=== PATIENT | male | born 1940 | race Caucasian/White ===

== ENCOUNTER 2020-05-21 13:40 | Outpatient (CLI) | payer MEDICARE, SELFPAY ==
--- NOTE | 2020-05-21 13:49 | ECHO_ITS ---
Patient Info Name: Paulino Correa Age: 80 years : 1940 Gender: Male Ht: 69 in Wt: 188 lbs BSA: 2.05 m2 HR: 75 bpm BP: 145 / 84 mmHg Technical Quality: Good Exam Date: 05/21/2020 2:21 PM Exam Location: [facility] Pulmonary Patient Status: Outpatient Admit Date: 05/21/2020 Staff Ordering Physician: William Reddy DO Geriatric Nursing Assistant: Franklin Yanes RDCS, RT Attending Provider: William Reddy DO Referring Physician: Barry KEARNEY; Exam Type: CA echo dop color flow w con Study Info Indications R06.00 - Dyspnea, unspecified Complete two-dimensional, color flow and Doppler transthoracic echocardiogram is performed. Strain analysis performed. Summary 1. Complete two-dimensional, color flow and Doppler transthoracic echocardiogram is performed. 2. Left ventricular chamber dimension is normal. 3. Left ventricular systolic function is normal, estimated at 60-65%. 4. There is mildly increased left ventricular wall thickness. 5. Left ventricular septal wall motion is abnormal with septal motion related to bundle branch block. 6. The left ventricular diastolic function is grade I diastolic dysfunction. 7. E/e' 11 is mildly elevated. 8. Global longitudinal strain is abnormal at -13.8%. 9. There is moderate aortic valve sclerosis. 10. There is mild aortic valve stenosis with a peak velocity of 170.04 cm/s, mean gradient of 7 mmHg, and aortic valve area of 1.60 cm2. 11. The mitral valve has mildly calcified annulus. 12. There is trace tricuspid valve regurgitation. 13. No pulmonary hypertension, estimated pulmonary arterial systolic pressure is 26 mmHg. Left Ventricle E/e' 11 is mildly elevated. Global longitudinal strain is abnormal at -13.8%. Left ventricular chamber dimension is normal. Left ventricular systolic function is normal, estimated at 60-65%. There is mildly increased left ventricular wall thickness. Left ventricular septal wall motion is abnormal with septal motion related to bundle branch block. The left ventricular diastolic function is grade I diastolic dysfunction. Right Ventricle Right ventricular chamber dimension is normal. Right ventricular systolic function is normal. Left Atria Left atrial chamber dimension is normal. Right Atria Right atrial chamber dimension is normal. Aortic Valve The aortic valve is trileaflet. There is moderate aortic valve sclerosis. There is mild aortic valve stenosis with a peak velocity of 170.04 cm/s, mean gradient of 7 mmHg, and aortic valve area of 1.60 cm2. There is no aortic valve regurgitation. Pulmonic Valve There is no pulmonic regurgitation. Mitral Valve The mitral valve has mildly calcified annulus. There is no mitral valve stenosis. There is no mitral valve regurgitation. Tricuspid Valve There is trace tricuspid valve regurgitation. No pulmonary hypertension, estimated pulmonary arterial systolic pressure is 26 mmHg. Pericardium/Pleural There is no pericardial effusion. Inferior Vena Cava Normal inferior vena cava with >50% collapse upon inspiration consistent with normal right atrial pressure, 5 mmHg. Aorta The aortic root size at the sinus of Valsalva is normal. Left Ventricular Outflow Tract Name Value Normal LVOT 2D LVOT Di
== END 2020-05-21 13:41 | disposition home or self-care (01) ==
LOC: ANHCARD 13:42
PROVIDERS: PCP Internal Medicine Cardiovascular Disease; Visit Provider Internal Medicine Cardiovascular Disease
DX: R06.00 Dyspnea, unspecified (principal); R94.2 Abnormal results of pulmonary function studies
CPT/HCPCS: C8929

== ENCOUNTER 2023-01-12 12:23 | Outpatient (CLI) | payer MEDICARE, SELFPAY ==
--- NOTE | 2023-01-12 12:32 | ECHO_ITS ---
Patient Info Name: Paulino Correa Age: 83 years : 1940 Gender: Male Ht: 69 in Wt: 186 lbs BSA: 2.04 m2 HR: 84 bpm BP: 133 / 83 mmHg Heart Rhythm: Sinus Rhythm Technical Quality: Poor Exam Date: 01/12/2023 12:52 PM Exam Location: Echo Lab Patient Status: Outpatient Admit Date: 01/12/2023 Staff Ordering Physician: William Reddy DO Community Engagement Leader: Shaw Mccormack RDCS Attending Provider: William Reddy DO Referring Physician: Barry KEARNEY; Exam Type: CA echo dop color flow w con Study Info Indications - Nonrehumatic aortic stenosis Complete two-dimensional, color flow and Doppler transthoracic echocardiogram is performed with contrast to opacify the left ventricle and to improve the deliniation of the left ventricle endocardial borders. Contrast/Agitated Saline Contrast/Ag. Saline: Definity Amount: 3.00 ml Summary 1. Technically suboptimal study due to poor sonographic images. 2. Definity contrast administered improved wall motion interpretation. 3. Left ventricular chamber dimension is normal. 4. Left ventricular systolic function is normal, estimated at 55-60%. 5. There is mild concentric increased left ventricular wall thickness. 6. Left ventricular septal wall motion is abnormal with septal motion related to bundle branch block. 7. The left ventricular diastolic function is grade I diastolic dysfunction. 8. E/e' 8 is minimally elevated. 9. Left atrial chamber dimension is mildly enlarged. 10. There is moderate aortic valve sclerosis. 11. There is very mild aortic valve stenosis with a peak velocity of 169.68 cm/s, mean gradient of 7 mmHg, and aortic valve area of 2.35 cm2. 12. The mitral valve has mildly calcified annulus. 13. No pulmonary hypertension, estimated pulmonary arterial systolic pressure is 12 mmHg. 14. The aortic root size at the sinus of Valsalva is borderline dilated at 4.0 cm. Left Ventricle E/e' 8 is minimally elevated. Definity contrast administered improved wall motion interpretation. Technically suboptimal study due to poor sonographic images. Left ventricular chamber dimension is normal. Left ventricular systolic function is normal, estimated at 55-60%. There is mild concentric increased left ventricular wall thickness. Left ventricular septal wall motion is abnormal with septal motion related to bundle branch block. The left ventricular diastolic function is grade I diastolic dysfunction. Right Ventricle Right ventricular systolic function is normal and with normal TAPSE 3.0 cm. Right ventricular chamber dimension is normal. Left Atria Left atrial chamber dimension is mildly enlarged. Right Atria Right atrial chamber dimension is normal. Aortic Valve There is very mild aortic valve stenosis with a peak velocity of 169.68 cm/s, mean gradient of 7 mmHg, and aortic valve area of 2.35 cm2. The aortic valve is trileaflet. There is moderate aortic valve sclerosis. There is no aortic valve regurgitation. Pulmonic Valve There is no pulmonic regurgitation. Mitral Valve The mitral valve has mildly calcified annulus. There is no mitral valve stenosis. There is no mitral valve regurgitation. Tricuspid Valve There is no tricuspid valve regurgitation. No pulmonary hypertension, estimated pulmonary arterial systolic pressure is 12 mmHg. Pericardium/Pleural There is no pericardial effusion. Inferior Vena Cava Normal inferior vena cava with >50% collapse upon inspiration consistent with normal right atrial pressure, 5 mmHg. Aorta The aortic root size at the sinus of Valsalva is b
[2023-01-12] MEDS: PERFLUTREN LIPID MICROSPHERES 1.5 ML VIAL DILUTED TO 10 ML TOTAL VOLUME IV PUSH (13:18)
--- NOTE | 2023-01-13 08:24 | IVDEFINITY ---
Prior to administration of IV Definity the patient was educated on the risks and benefits of the imaging enhancing agent including potential adverse side effects. The patient verbalized understanding. Allergies were verified. No exclusion criteria were identified and at least one of the following inclusion criteria were met: 1) physician request, 2) patient technically difficult to image (per the [place] [employer]chocardi[employer] guidelines of two or more segments not discernable within the apical view), or 3) questionable left ventricular function. ?
== END 2023-01-12 12:24 | disposition home or self-care (01) ==
PROVIDERS: PCP Physician Assistant; Visit Provider Internal Medicine Cardiovascular Disease
DX: I08.0 Rheumatic disorders of both mitral and aortic valves (principal)
CPT/HCPCS: C8929; Q9957

== ENCOUNTER 2024-06-10 11:38 | Outpatient (CLI) | payer MEDICARE, SELFPAY ==
--- NOTE | ~2024-06-10 | XR_ITS ---
Right Shoulder Technique: AP and scapular Y views were obtained. Clinical History: Arthritis Findings: No fracture or dislocation is seen. Osseous alignment is anatomic. The glenohumeral joint d emonstrates moderate degenerative change. Probable loose bodies in the biceps tendon sheath. Impression: Degenerative change, as above. Reviewed, dictated and finalized at location . Impression: Degenerative change, as above.
--- NOTE | ~2024-06-10 | XR_ITS ---
Left Shoulder Technique: AP and scapular Y views were obtained. Clinical History: Arthritis Findings: No fracture or dislocation is seen. Osseous alignment is anatomic. The glenohumeral joint d emonstrates severe degenerative change. There is mild AC joint degenerative change. Soft tissues are unremarkable. Impression: Severe glenohumeral joint degenerative change. Reviewed, dictated and finalized at location . Impression: Severe glenohumeral joint degenerative change.
== END 2024-06-10 11:39 | disposition home or self-care (01) ==
LOC: GOSHIMG 11:41
PROVIDERS: PCP Physician Assistant; Visit Provider Orthopaedic Surgery
DX: M19.011 Primary osteoarthritis, right shoulder (principal); M19.012 Primary osteoarthritis, left shoulder
CPT/HCPCS: 73030

== ENCOUNTER 2024-09-06 12:28 | Outpatient (CLI) | payer MEDICARE, SELFPAY ==
--- OUTSIDE RECORDS SUMMARY | 2024-09-06 12:33 | XMS_ITS | Encounter Summary ---
Author Organization [facility] Address [address] [place] [address] Phone Care Team Providers Care Candy Separator Enrobing Name Role Phone Nick Tran DPM Unavailable Nia Frederick PAC Primary Care Pro vider Brian Miller MD Unavailable [phone] Reason for Visit * Reason Comments Medication Refill Encounter Details Date Type Department Care Team (Late st Contact Info) Description 11/21/2020 Refill [facility] [address] [place], [place] [id number] Nia Frederick, PAC [address] [place] [address] Medication Refill Social History Tobacco Use Types Packs/Day Years Used Date Smoking Tobacco: Never Smokeless Tobacco: Never Alcohol Use Standard Drinks/Week Comments No 0 (1 standard drink = 0.6 oz pur e alcohol) PHQ-2 Answer Date Recorded Total Score - Questions 1-9 0 08/27 Education Answer Date Recorded What is the highest level of school you have completed or the highest degree you have received? 12th grade 03/07/2020 Sex and Gender Information Value Date Recorded Sex Assigned at Not on file Legal Sex Male 9:47 PM CDT Gender Identity Not on file Sexual Orientation Not on file documented as of this encounter Plan of Treatment Upcoming Encounters Date Type Department Care Team (Late st Contact Info) Description 02/12/2025 10:15 AM CAMPUS RECRUITING INTERN Office Visit [facility] - Internal Medicine [place] [address] [place] [address] Nia Frederick, [facility] [address] [place] [address] documented as of this encounter Visit Diagnoses Not on filedocumented in this encounter Additional Health Concerns Infection Onset Date Last Indicated Resolved Time COVID - 19 05/21/2021 05/21/2021 05/21/2021 10:3 3 AM CDT COVID - 19 05/21/2021 05/21/2021 06/10/2021 12:1 6 AM CDT COVID - 19 05/04/2023 05/04/2023 05/04/2023 1:07 PM CAMPUS RECRUITING INTERN Respiratory Rule-Out 05/04/2023 05/04/2023 024 1:21 PM CAMPUS RECRUITING INTERN Assessment Noted Time PHQ-9 Depression Total Score: 0 09/10/19 21 10:00 AM CDT documented as of this encounter Care Teams Candy Separator Enrobing Relationship Specialty Start Date End Date Nia Frederick, PAC [address] [place] [address] PCP - General Physician Archaeologist 01/27/16 Nick Tran DPM Podiatry 11/20/15 Brian Miller MD [address] [address] Consulting Physician General Surgery 02/19/24 documented as of this encounter
--- OUTSIDE RECORDS SUMMARY | 2024-09-06 12:33 | XMS_ITS | Referral Summary ---
Author Organization [facility] Medical Office Building [facility] Address [address] [place] [address] Care Team Providers Care Mason Helper Name Role Phone Nia Frederick Primary Care Prov ider Allergies Active Allergy Reactions Criticality Noted Date Comments Codeine Other (See comments) Low 01/28/2015 Makes pt hyper Gluten Rash Medium Medications allopurinol (ZYLOPRIM) 100 mg tablet TAKE 1 TAB BY MOUTH EVERY OTHER DAY(M/W/F/SUN) ALTERNATING WITH 2 TABS(200MG) EVERY OTHER DAY 0 05/04/19 18 Active fluocinolone in oil (DermOtic) 0.01 % dropsIndications :Otitis Externa Eczema Administer into each ear. 03/28/19 18 Active fluticasone (FLONASE) 50 mcg/actuation nasal spray Administer into each nostril. 06/07/19 17 Active furosemide (LASIX) 20 mg tablet Take 20 mg by mouth daily. 3 07/05/19 18 Active levothyroxine (SYNTHROID, LEVOTHROID) 200 mcg tablet Take total of 250 mcg 12/14/19 17 Active levothyroxine (SYNTHROID, LEVOTHROID) 50 mcg tablet TAKE 1 TABLET BY MOUTH EVERY DAY WITH LEVOTHYROXINE 200MCG 12/15/19 17 Active lisinopril-hydro CHLOROthiazide (PRINZIDE,ZESTOR ETIC) 20-12.5 mg per tabletIndication s:hypertension Take 1 tablet by mouth daily. 2 05/30/19 18 Active meclizine (ANTIVERT) 25 mg tablet Take 25 mg by mouth. 06/07/19 17 Active silver sulfadiazine (SILVADENE, SSD) 1 % cream Apply topically. 03/28/19 18 Active simvastatin (ZOCOR) 20 mg tablet Take 20 mg by mouth daily. 2 05/08/19 18 Active omeprazole (PriLOSEC) 20 mg capsule Take 20 mg by mouth. 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 Assessment & Plan (02/07/2022 11:14 AM AUTOMOBILE RELOCATION ENGINEER): 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 Continue omeprazole Dysphonia 02/07/2022 Assessment & Plan (02/07/2022 11:14 AM AUTOMOBILE RELOCATION ENGINEER): 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 Continue omeprazole Gastroesophageal reflux disease without esophagi tis 02/07/2022 Assessment & Plan (02/07/2022 11:14 AM AUTOMOBILE RELOCATION ENGINEER): 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 Continue omeprazole LPR discussed and Handout provided Cough 08/15/2014 Overview (06/03/2016): Cough Social History Tobacco Use Types Packs/Day Years Used Date Smoking Tobacco: Never Smokeless Tobacco: Never Tobacco Cessation:Counseling Given: Not Answered Alcohol Use Standard Drinks/Week Comments No 0 (1 standard drink = 0.6 oz pur e alcohol) Sex and Gender Information Value Date Recorded Sex Assigned at Not on file Legal Sex Male 10:14 AM AUTOMOBILE RELOCATION ENGINEER Gender Identity Not on file Sexual Orientation Not on file Last Filed Vital Signs Vital Sign Reading Time Taken Comments Blood Pressure 113/68 02/07/2022 10:48 AM AUTOMOBILE RELOCATION ENGINEER Pulse 75 02/07/2022 10:48 AM AUTOMOBILE RELOCATION ENGINEER Temperature 36.3 C (97.4 F) 02/07/2022 10:48 AM AUTOMOBILE RELOCATION ENGINEER Respiratory Rate 16 02/07/2022 10:48 AM AUTOMOBILE RELOCATION ENGINEER Oxygen Saturation 97% 02/07/2022 10:48 AM AUTOMOBILE RELOCATION ENGINEER Inhaled Oxygen Concentration - - Weight 85.3 kg (188 lb) 02/07/2022 10:48 AM AUTOMOBILE RELOCATION ENGINEER Height 175.3 cm (5' 9) 02/07/2022 10:48 AM AUTOMOBILE RELOCATION ENGINEER Body Mass Index 27.76 02/07/2022 10:48 AM AUTOMOBILE RELOCATION ENGINEER Plan of Treatment Not on file Insurance COMMERCIAL GENERIC COMMERCIAL GENERIC MEDICARE Care Teams Mason Helper Relationship Specialty Start Date End Date Nia Frederick PA PCP - General Neurosurgery 07/12/17
--- OUTSIDE RECORDS SUMMARY | 2024-09-06 12:33 | XMS_ITS | Encounter Summary ---
Author Organization [facility] Address [address] [place] [address] Phone Care Team Providers Care Steam Press Tender Name Role Phone Nick Tran DPM Unavailable Nia Frederick PAC Primary Care Pro vider Brian Miller MD Unavailable Reason for Visit * Reason Comments Medication Refill Encounter Details Date Type Department Care Team (Late st Contact Info) Description 11/21/2022 Refill [facility] [place] [address] [place] [phone] Nia Frederick, PAC [address] [place] [address] Medication Refill Social History Tobacco Use Types Packs/Day Years Used Date Smoking Tobacco: Never Smokeless Tobacco: Never Alcohol Use Standard Drinks/Week Comments No 0 (1 standard drink = 0.6 oz pur e alcohol) PHQ-2 Answer Date Recorded Total Score - Questions 1-9 0 04/27 Education Answer Date Recorded What is the highest level of school you have completed or the highest degree you have received? 12th grade 03/07/2020 Sexually Active Control Partners Comments Not Currently Sex and Gender Information Value Date Recorded Sex Assigned at Not on file Legal Sex Male 9:47 PM CDT Gender Identity Not on file Sexual Orientation Not on file documented as of this encounter Miscellaneous Notes * Telephone Encounter - Sunita Mack RN - 11/21/2022 10:36 AM CDT Medication failed the protocol, provider to review and approve the medication order if appropriate. Requested Prescriptions Pending Prescriptions Disp Refills omeprazole (PriLOSEC) 40 MG CAPSULE DELAYED RELEASE [Pharmacy Med Name: OMEPRAZOLE DR 40 MG CAPSULE] 90 Capsule 3 Sig: TAKE 1 CAPSULE BY MOUTH EVERY DAY Proton Pump Inhibitors Protocol Passed - 11/21/2022 7:30 AM Passed - Visit with relevant provider in past 12 months or upcoming 90 days Recent Visits Date Type Provider Dept 05/25/22 Office Visit Nia Frederick PAC [facility] [place] 11/24/21 Office Visit Nia Frederick PAC [facility] [place] Showing recent visits within past 365 days and meeting all other requirements Future Appointments Date Type Provider Dept 11/25/22 Appointment Nia Frederick PAC [facility] [place] Showing future appointments within next 90 days and meeting all other requirements carvedilol (COREG) 3.125 MG Tablet [Pharmacy Med Name: CARVEDILOL 3.125 MG TABLET] 60 Tablet 0 Sig: TAKE 1 TABLET BY MOUTH EVERY DAY Beta-Blockers Protocol Passed - 11/21/2022 7:30 AM Passed - BP on record in the past year Clinician-entered: BP Readings from Last 3 Encounters: 05/25/22 106/68 11/24/21 104/64 06/25/21 102/66 Patient-entered: No data recorded Passed - Visit with relevant provider in past 12 months or upcoming 90 days Recent Visits Date Type Provider Dept 05/25/22 Office Visit Nia Frederick PAC [facility] [place] 11/24/21 Office Visit Nia Frederick PAC [facility] [place] Showing recent visits within past 365 days and meeting all other requirements Future Appointments Date Type Provider Dept 11/25/22 Appointment Nia Frederick PAC [facility] Show[place] future appointments within next 90 days and meeting all other requirements documented in this encounter Plan of Treatment Upcoming Encounters Date Type Department Care Team (Late st Contact Info) Description 02/12/2025 10:15 AM INSOLE AND HEEL STIFFENER Office Visit [facility] - Internal [facility] - [place] [address] [place] [address] Nia Frederick, PAC [address] [address] documented as of this encounter Visit Diagnoses Not on filedocumented in this encounter Additional Health Concerns Infection Onset Date Last Indicated Resolved Time COVID - 19 05/04/2023 05/04/2023 05/04/2023 1:07 PM INSOLE AND HEEL STIFFENER Respiratory Rule-Out 05/04/2023 05/04/2023 024 1:21 PM INSOLE AND HEEL STIFFENER Assessment Noted Time PHQ-9 Depression Total Score: 0 09/10/19 21 10:00 AM CDT documented as of this encounter Care Teams Steam Press Tender Relationship Specialty Start Date End Date Nai Frederick, PAC [address] [place] [address] PCP - General Physician Boiler Repair Supervisor 01/27/16 Nick Tran DPM Podiatry 11/20/15 Brian Miller MD [address] [phone] Consulting Physician General Surgery 02/19/24 documented as of this encounter
--- OUTSIDE RECORDS SUMMARY | 2024-09-06 12:33 | XMS_ITS | Encounter Summary ---
Author Organization [facility] Address [address] [place] [address] Phone Care Team Providers Care Pillar Man Name Role Phone Nick Tran DPM Unavailable Nia Frederick PAC Primary Care Pro vider Brian Miller MD Unavailable Encounter Details Date Type Department Care Team (Late st Contact Info) Description 09/03/2024 Documentation Only [facility] - [place] [address] [place] [id number] Nia Frederick, PAC [address] [place] [address] Social History Tobacco Use Types Packs/Day Years Used Date Smoking Tobacco: Never Passive Smoke Exposure: Never Smokeless Tobacco: Never Alcohol Use Standard Drinks/Week Comments No 0 (1 standard drink = 0.6 oz pur e alcohol) [facility] Utilities Answer Date Recorded In the past 12 months has [employer] electric, gas, oil, or water company threatened to shut off services in your home? No 02/11/2024 Social Connection and Isolation Panel Answer Date Recorded In a typical week, how many times do you talk on the phone with family, friends, or neighbors? Twice a week 02/11/2024 How often do you get togethe r with friends or relatives? Three times a week 02/11/2024 How often do you attend [facility] or nondenominational services? More than 4 times per year 02/11/2024 Do you belong to any clubs o r organizations such as jainism groups, unions, fraternal or athletic groups, or school groups? No 02/11/2024 How often do you attend meet ings of the clubs or organizations you belong to? Never 02/11/2024 Are you , , di vorced, , never , or living with a partner? 02/11/2024 AUDIT-C Answer Date Recorded Q1: How often do you have a drink containing alcohol? Never 02/11/2024 Q2: How many drinks containi ng alcohol do you have on a typical day when you are drinking? Patient does not drink Q3: How often do you have si x or more drinks on one occasion? Never 02/11/2024 Overall Financial Resource Strain (CARDIA) Answe r Date Recorded How hard is it for you to pa y for the very basics like food, housing, medical care, and heating? Not hard at all 02/11/2024 PHQ-2 Answer Date Recorded Total Score - Questions 1-9 0 07/28 [facility] - Occupational Stress Questionnaire Answer Date Recorded Do you feel stress - tense, restless, nervous, or anxious, or unable to sleep at night because your mind is troubled all the time - these days? Only a little 02/11/2024 Exercise Vital Sign Answer Date Recorde d On average, how many days pe r week do you engage in moderate to strenuous exercise (like a brisk walk)? 0 days 02/11/2024 On average, how many minutes do you engage in exercise at this level? 0 min 02/11/2024 Hunger Vital Sign Answer Date Recorded Within the past 12 months, y ou worried that your food would run out before you got the money to buy more. Never true 02/11/20 24 Within the past 12 months, t he food you bought just didn't last and you didn't have money to get more. Never true 02/11/2024 PRAPARE - Transportation Answer Date Re corded In the past 12 months, has l ack of transportation kept you from medical appointments or from getting medications? No 01/27 In the past 12 months, has l ack of transportation kept you from meetings, work, or from getting things needed for daily living? No 02/11/2024 Housing Stability Vital Sign Answer Lemuel e Recorded In the last 12 months, was t here a time when you were not able to pay the mortgage or rent on time? No 06/19/2023 Number of Places Lived in the Last Year Not on f ile 06/19/2023 In the last 12 months, was t here a time when you did not have a steady place to sleep or slept in a fci (including now)? No 06/19/2023 Housing Stability Vital Sign Answer Lemeul e Recorded In the last 12 months, was t here a time when you were not able to pay the mortgage or rent on time? No 02/11/2024 In the past 12 months, how m any times have you moved where you were living? 0 02/11/2024 At any time in the past 12 m [facility], were you homeless or living in a fci (including now)? No 02/11/2024 Education Answer Date Recorded What is the [...] st Contact Info) Description 02/12/2025 10:15 AM JIG BORE OPERATOR Office Visit [facility] - Internal Medicine - [place] [address] [place] [address] Nia Frederick, MEÑO [address] [place] [address] documented as of this encounter Visit Diagnoses Not on filedocumented in this encounter Additional Health Concerns Assessment Noted Time PHQ-9 Depression Total Score: 0 08/10/19 25 10:26 AM CDT documented as of this encounter Care Teams Pillar Man Relationship Specialty Start Date End Date Nia Frederick PAC [address] [place] [address] PCP - General Physician Acquisition Consultant 01/27/16 Nick Tran DPM Podiatry 11/20/15 Brian Miller MD [address] [phone] Consulting Physician General Surgery 02/19/24 documented as of this encounter
--- OUTSIDE RECORDS SUMMARY | 2024-09-06 12:33 | XMS_ITS | Clinical Summary ---
Author Organization [facility] Address [address] [place] [id number] Care Team Providers Care Web Page Designer Name Role Phone Nia Frederick Primary Care Provider [phone] Social History Tobacco Use Types Packs/Day Years Used Date Smoking Tobacco: Never Assessed Sex and Gender Information Value Date Recorded Sex Assigned at Not on file Legal Sex Male 8:42 AM CDT Gender Identity Not on file Sexual Orientation Not on file Plan of Treatment Health Maintenance Due Date Last Done Comments Zoster Vaccines (1 of 2) 1989 Annual Medicare Wellness Visit 01/09/2004 DTaP, Tdap and Td Vaccines ( 1 - Tdap) 07/29/2006 07/28/2006 RSV Immunization or 60+ Years (1 - 1-dose 75+ series) 2014 COVID-19 Vaccine (4 2023-2 5 season) 2023 02/02/2021, 04/17/2020, 03/20/2020 Pneumococcal Vaccine: 50+ Years Completed 02/06/2017, 06/09/2015, 12/03/2013 Meningococcal B Vaccine Aged Out No l onger eligible based on patient's age to complete this topic Meningococcal Vaccine Aged Out No monty viridiana eligible based on patient's age to complete this topic RSV Immunizations Under 20 Months Aged Out No longer eligible b ased on patient's age to complete this topic Insurance MEDICARE [facility] Care Teams Web Page Designer Relationship Specialty Start Date End Date Nia Frederick PA PCP - General PHYSICIAN WIRE COATING OPERATOR METAL 05/24/21
--- OUTSIDE RECORDS SUMMARY | 2024-09-06 12:33 | XMS_ITS | Clinical Summary ---
Author Organization [facility] Address [address] [place] [address] Care Team Providers Care Guidance And Control System Engineer Name Role Phone Unavailable Primary Care Provider Unavailabl e Source Comments [facility],non-owned Affiliates and Associated Physician Practices is amultiple site organization consisting of ambulatory clinics and hospital sitesin [place], [place], [place] and [place]. This disclosure is being madepursuant to the Care Everywhere program and may not contain all information available regarding this patient. Last updated 17.[facility] [employer] Allergies Active Allergy Reactions Criticality Noted Date Comments Codeine Other High 08/29/2018 Patient said it makes him feel like he is bouncing off the mal[place]ado Medications * Be aware that medications may not be up to date on this document. Alwaysverify current medications with the patient. allopurinol (ZYLOPRIM) 100 MG tablet 2 07/11/2018 Active fluticasone propionate (FLONASE) 50 MCG/ACT nasal spray 06/06/2016 Active levothyroxine (SYNTHROID) 200 MCG tablet TAKE 1 TABLET BY MOUTH EVERY DAY 06/08/2018 Active levothyroxine (SYNTHROID) 50 MCG tablet Take 50 mcg by mouth once daily 08/23/2018 Active lisinopril-hydro CHLOROthiazide (PRINZIDE; ZESTORETIC) 20-12.5 MG tablet Take 1 tablet by mouth once daily 3 06/08/2018 Active meclizine (ANTIVERT) 25 MG tablet Take 25 mg by mouth 07/21/2018 Active omeprazole (PRILOSEC) 20 MG capsule 2 06/09/2018 Active simvastatin (ZOCOR) 20 MG tablet Take 20 mg by mouth once daily 08/02/2018 Active Active Problems No known active problems Social History Tobacco Use Types Packs/Day Years Used Date Smoking Tobacco: Never Smokeless Tobacco: Never Sex and Gender Information Value Date Recorded Sex Assigned at Not on file Legal Sex Male 11:55 AM CDT Gender Identity Not on file Sexual Orientation Not on file Last Filed Vital Signs Vital Sign Reading Time Taken Comments Blood Pressure - - Pulse - - Temperature - - Respiratory Rate - - Oxygen Saturation - - Inhaled Oxygen Concentration - - Weight 90.7 kg (200 lb) 08/29/2018 12:44 PM CDT Height 175.3 cm (5' 9) 08/29/2018 12:44 PM CDT Body Mass Index 29.53 08/29/2018 12:44 PM CDT Plan of Treatment Health Maintenance Due Date Last Done Comments DTAP/TDAP/TD VACCINES (1 - Tdap) 1958 PNEUMOCOCCAL VACCINE 50+ (1 of 1 - PCV) 1989 ZOSTER VACCINE (1 of 2) 1989 Respiratory Syncytial Virus (RSV) Vaccine Pt: or over 60 yrs (1 - 1-dose 75+ series) 2014 COVID-19 VACCINE ( - season) 2023 DEPRESSION SCREENING 02/28/2024 INFLUENZA VACCINE (#1) 2024 8, 11/28/2016, 11/03/2015, Additional history exists HEPATITIS B VACCINE Aged Out No longe r eligible based on patient's age to complete this topic HIB VACCINE Aged Out No longer eligi ble based on patient's age to complete this topic HPV VACCINE Aged Out No longer eligi ble based on patient's age to complete this topic MENINGOCOCCAL (Group B) VACCINE SHARED DECISION-MAKING Aged Out No longer eligible based on patient's age to complete this topic MENINGOCOCCAL GROUPS A/C/Y/W VACCINE Aged Out No longer eligible based on patient's age to complete this topic Insurance MEDICARE MEDICARE [facility]
--- OUTSIDE RECORDS SUMMARY | 2024-09-06 12:33 | XMS_ITS | Encounter Summary ---
Author Organization [facility] Address [address] [place] [address] Phone Care Team Providers Care Coat Finisher Name Role Phone Nick Tran DPM Unavailable Nia Frederick PAC Primary Care Pro vider Brian Miller MD Unavailable Reason for Visit * Reason Comments Medication Refill Encounter Details Date Type Department Care Team (Late st Contact Info) Description 12/01/2022 Refill [facility] - [facility] - [place] [address] [place] [phone] Nia Frederick, PAC [address] [place] [address] Medication Refill Social History Tobacco Use Types [...] on file Sexual Orientation Not on file COVID-19 Exposure Response Date Recorded In the last 10 days, have yo u been in contact with someone who was confirmed or suspected to have Coronavirus/COVID-19? No / Unsure 11/25/2022 9:25 AM CDT documented as of this encounter Miscellaneous Notes * Telephone Encounter - Sunita Mack RN - 12/01/2022 8:52 AM CDT Medication failed the protocol, provider to review and approve the medication order if appropriate. Requested Prescriptions Pending Prescriptions Disp Refills allopurinol (ZYLOPRIM) 100 MG Tablet [Pharmacy Med Name: ALLOPURINOL 100 MG TABLET] 90 Tablet 3 Sig: TAKE 1 TABLET BY MOUTH EVERY DAY Gout Agents Protocol Failed - 12/01/2022 1:15 AM Failed - Uric acid on record in past 12 months URIC ACID Date Value Ref Range Status 09/04/2020 8.0 (H) 3.4 - 7.0 mg/dL Final Passed - Visit with relevant provider in past 12 months or upcoming 90 days Recent Visits Date Type Provider Dept 11/25/22 Office Visit Nia Frederick, [facility] 05/25/22 [facility] [place] Showing recent visits within past 365 days and meeting all other requirements Future Appointments Date Type Provider Dept 03/01/23 Appointment [facility]ia Frederick, [facility] [place] Showing future appointments within next 90 days and meeting all other requirements Passed - Serum creatinine on record in past 12 months CREATININE, BLOOD Date Value Ref Range Status 11/25/2022 0.82 0.70 - 1.30 mg/dL Final documented in this encounter Plan of Treatment Upcoming Encounters Date Type Department Care Team (Late st Contact Info) Description 02/12/2025 10:15 AM STEAM BOX TENDER Office Visit [facility] - [place] [address] [place] [address] Nia Frederick, PAC [address] [place] [address] documented as of this encounter Visit Diagnoses Not on filedocumented in this encounter Additional Health Concerns Infection Onset Date Last Indicated Resolved Time COVID - 19 05/04/2023 05/04/2023 05/04/2023 1:07 PM STEAM BOX TENDER Respiratory Rule-Out 05/04/2023 05/04/2023 024 1:21 PM STEAM BOX TENDER Assessment Noted Time PHQ-9 Depression Total Score: 0 09/10/19 21 10:00 AM CDT documented as of this encounter Care Teams Coat Finisher Relationship Specialty Start Date End Date Nia Frederick, PAC [address] [place] [address] PCP - General Physician Outdoor Power Equipment Mechanic 01/27/16 Nick Tran DPM Podiatry 11/20/15 Brian Miller MD [address] [phone] Consulting Physician General Surgery 02/19/24 documented as of this encounter
--- OUTSIDE RECORDS SUMMARY | 2024-09-06 12:33 | XMS_ITS | Encounter Summary ---
Author Organization [facility] Address [address] [place] [address] Phone Care Team Providers Care Bag Washer Name Role Phone Nick Tran DPM Unavailable Nia Frederick PAC Primary Care Pro vider Brian Miller MD Unavailable Reason for Visit * Reason Comments Medication Refill Encounter Details Date Type Department Care Team (Late st Contact Info) Description 12/08/2021 Refill [facility] - [facility] - [place] [address] [place] [phone] Nia Frederick, PAC [address] [place] [address] Medication Refill Social History Tobacco Use Types [...] suspected to have Coronavirus/COVID-19? No / Unsure 11/24/2021 10:14 AM CDT documented as of this encounter Miscellaneous Notes * Telephone Encounter - Sunita Mack RN - 12/08/2021 1:13 PM CDT Medication failed the protocol, provider to review and approve the medication order if appropriate. Requested Prescriptions Pending Prescriptions Disp Refills allopurinol (ZYLOPRIM) 100 MG Tablet [Pharmacy Med Name: ALLOPURINOL 100 MG TABLET] 90 Tablet 3 Sig: TAKE 1 TABLET BY MOUTH EVERY DAY Gout Agents Protocol Failed - 12/08/2021 8:11 AM Failed - Uric acid on record in past 12 months URIC ACID Date Value Ref Range Status 09/04/2020 8.0 (H) 3.4 - 7.0 mg/dL Final Passed - Visit with relevant provider in past 12 months or upcoming 90 days Recent Visits Date Type Provider Dept 11/24/21 Office Visit Nia Frederick, PAC [facility] [place] 06/25/21 Office Visit Nia Frederick, PAC [facility] [place] 05/28/21 Office Visit Nia Frederick, PAC [facility] [place] 05/21/21 Office Visit Nia Frederick, PAC [facility] [place] 05/13/21 Office Visit Nia Frederick, PAC [facility] [place] 03/24/21 Office Visit Nia Frederick, PAC [facility] [place] Showing recent visits within past 365 days and meeting all other requirements Future Appointments No visits were found meeting these conditions. Showing future appointments within next 90 days and meeting all other requirements Passed - Serum creatinine on record in past 12 months CREATININE, BLOOD Date Value Ref Range Status 06/17/2021 0.81 0.80 - 1.30 mg/dL Final documented in this encounter Plan of Treatment Upcoming Encounters Date Type Department Care Team (Late st Contact Info) Description 02/12/2025 10:15 AM SENIOR NURSE MANAGER Office Visit [facility] - Internal Medicine - [place] [address] [place] [address] Nia Frederick, PAC [address] [place] [address] documented as of this encounter Visit Diagnoses Not on filedocumented in this encounter Additional Health Concerns Infection Onset Date Last Indicated Resolved Time COVID - 19 05/04/2023 05/04/2023 05/04/2023 1:07 PM SENIOR NURSE MANAGER Respiratory Rule-Out 05/04/2023 05/04/2023 024 1:21 PM SENIOR NURSE MANAGER Assessment Noted Time PHQ-9 Depression Total Score: 0 09/10/19 21 10:00 AM CDT documented as of this encounter Care Teams Bag Washer Relationship Specialty Start Date End Date Nia Frederick, PAC [address] [place] [address] PCP - General Physician Micro Computer Specialist 01/27/16 Nick Tran DPM Podiatry 11/20/15 Brian Miller MD [address] [phone] Consulting Physician General Surgery 02/19/24 documented as of this encounter
--- OUTSIDE RECORDS SUMMARY | 2024-09-06 12:33 | XMS_ITS | Encounter Summary ---
Author Organization [facility] Address [address] [place] [address] Phone Care Team Providers Care Service Architect Name Role Phone Nick Tran DPM Unavailable Nia Frederick PAC Primary Care Pro vider Brian Miller MD Unavailable Reason for Visit * Reason Comments Medication Refill Encounter Details Date Type Department Care Team (Late st Contact Info) Description 06/20/2022 Refill [facility] - [place] [address] [place] [phone] Nia Frederick, PAC [address] [place] [address] Medication Refill Social History Tobacco Use Types [...] suspected to have Coronavirus/COVID-19? No / Unsure 05/25/2022 9:37 AM CDT documented as of this encounter Miscellaneous Notes * Telephone Encounter - Sunita Mack RN - 06/20/2022 9:20 AM CDT Per nursing clinical judgement, provider to review and approve the medication(s) order(s) if appropriate. Requested Prescriptions Pending Prescriptions Disp Refills spironolactone (ALDACTONE) 25 MG Tablet [Pharmacy Med Name: SPIRONOLACTONE 25 MG TABLET] 90 Tablet 3 Sig: TAKE 1 TABLET BY MOUTH EVERY DAY Diuretics Protocol Passed - 06/20/2022 12:10 AM Passed - Serum potassium on record in past 12 months POTASSIUM Date Value Ref Range Status 05/11/2022 4.0 3.5 - 5.1 mmol/L Final Passed - Serum sodium on record in past 12 months SODIUM Date Value Ref Range Status 05/11/2022 134 (L) 136 - 144 mmol/L Final Passed - Blood pressure on record in past 12 months Clinician-entered: BP Readings from Last 3 Encounters: 05/25/22 106/68 11/24/21 104/64 06/25/21 102/66 Patient-entered: No data recorded Passed - Visit with relevant provider in past 12 months or upcoming 90 days Recent Visits Date Type Provider Dept 05/25/22 Office Visit Nia Frederick PAC [facility] 11/24/21 Office Visit Nia Frederick PAC [facility] [place] 06/25/21 Office Visit Nia Frederick PAC [facility] [place] Showing recent visits within past 365 days and meeting all other requirements Future Appointments No visits were found meeting these conditions. Showing future appointments within next 90 days and meeting all other requirements Passed - GFR on record in past 12 months GFR, EST. NONAFRICAN Date Value Ref Range Status 05/11/2022 >60 >=60 Final documented in this encounter Plan of Treatment Upcoming Encounters Date Type Department Care Team (Late st Contact Info) Description 02/12/2025 10:15 AM WORK STATION SUPPORT SPECIALIST [facility] [address] [place] [address] Nia Frederick, PAC [address] [place] [address] documented as of this encounter Visit Diagnoses Not on filedocumented in this encounter Additional Health Concerns Infection Onset Date Last Indicated Resolved Time COVID - 19 05/04/2023 05/04/2023 05/04/2023 1:07 PM WORK STATION SUPPORT SPECIALIST Respiratory Rule-Out 05/04/2023 05/04/2023 024 1:21 PM WORK STATION SUPPORT SPECIALIST Assessment Noted Time PHQ-9 Depression Total Score: 0 09/10/19 21 10:00 AM CDT documented as of this encounter Care Teams Service Architect Relationship Specialty Start Date End Date Nia Frederick, PAC [address] [place] [address] PCP - General Physician Retail Account Executive 01/27/16 Nick Tran DPM Podiatry 11/20/15 Brian Miller MD [address] [phone] Consulting Physician General Surgery 02/19/24 documented as of this encounter
--- OUTSIDE RECORDS SUMMARY | 2024-09-06 12:33 | XMS_ITS | Clinical Summary ---
Author Organization [facility] Address [address] [facility], [address] [address] Phone Care Team Providers Care Industrial Health And Safety Professor Name Role Phone Nick Tran Clay DPM Unavailable [phone] Nia Frederick PAC Primary Care Pro vider Brian Miller MD Unavailable Allergies Active Allergy Reactions Criticality Noted Date Comments Codeine Other (see Comments) Medium 01/28/2015 Makes pt hyper Gluten Meal Rash Medium Medications lisinopril (PRINIVIL, ZESTRIL) 2.5 MG Tablet Take 2.5 mg by mouth daily. 11/03/19 22 Active allopurinol (ZYLOPRIM) 100 MG Tablet TAKE 1 TABLET BY MOUTH EVERY DAY 90 Tablet 3 11/21/19 24 Active levothyroxine (SYNTHROID) 200 MCG TabletIndications :Acquired hypothyroidism TAKE 1 TABLET BY MOUTH EVERY DAY 90 Tablet 3 12/21/19 24 Active levothyroxine (SYNTHROID) 25 MCG TabletIndications :Acquired hypothyroidism Take 1 Tablet by mouth daily. 90 Tablet 3 12/21/19 24 Active simvastatin (ZOCOR) 20 MG Tablet TAKE 1 TABLET BY MOUTH EVERY DAY 90 Tablet 1 02/05/20 24 Active omeprazole (PriLOSEC) 20 MG CAPSULE DELAYED RELEASE TAKE 1 CAPSULE BY MOUTH EVERY DAY 90 Capsule 3 05/22/19 25 Active spironolactone (ALDACTONE) 25 MG Tablet TAKE 1 TABLET BY MOUTH EVERY DAY 90 Tablet 3 06/13/19 25 Active metoprolol Succinate (TOPROL-XL) 25 MG TABLET SR 24 HR Take 25 mg by mouth daily. 07/10/19 25 Active lisinopril-hydroC HLOROthiazide (PRINZIDE, ZESTORETIC) 20-12.5 MG Tablet TAKE 1 TABLET BY MOUTH EVERY DAY 90 Tablet 3 05/26/19 21 022 Discontinued baclofen (LIORESAL) 10 MG Tablet TAKE 1/2 TABLET BY MOUTH 3 TIMES DAILY NEEDED FOR MUSCLE SPASMS FOR UP TO 30 DAYS. 45 Tablet 01/15/20 22 025 Discontinued(Th erapy completed) furosemide (LASIX) 20 MG Tablet TAKE 1 TABLET BY MOUTH EVERY DAY 90 Tablet 3 06/30/19 24 025 Discontinued( erapy completed) carvedilol (COREG) 3.125 MG Tablet Take 1 Tablet by mouth daily. 90 Tablet 04/16/19 25 025 Discontinued(Th erapy completed) Active Problems Problem Noted Date Diagnosed Date GERD (gastroesophageal reflux disease) 2 Colon polyps 04/24/2019 Bursitis of heel, left 07/20/2017 Pain of left heel 07/20/2017 Hyperlipidemia 02/06/2017 Elevated glucose 06/06/2016 Vertigo 06/06/2016 Elevated blood uric acid level 01/28/2016 Gout 01/28/2016 Celiac disease 01/28/2016 Gluten intolerance 01/28/2016 Gastrocnemius equinus of right lower extremity 0 11/20/2015 Gastrocnemius equinus of left lower extremity Pain of both heels 11/20/2015 [place] or callus 11/20/2015 Other specified peripheral vascular diseases Essential hypertension 01/26/2015 Overview (09/05/2019): Dr Iniguez follows [facility] Acquired hypothyroidism 01/26/2015 Primary osteoarthritis involving multiple joints 01/26/2015 Chronic cough 01/26/2015 Presbyacusis Resolved Problems Problem Noted Date Diagnosed Date Resolved Date Hyperkalemia 05/13/2021 05/16/2021 Acute renal failure (ARF) 05/13/2021 Encounters Date Type Department Care Team Description 09/03/2024 Documentation Only [facility] Internal [facility] [address] [place] [address] Nia Frederick, MEÑO 08/19/2024 Telephone [facility] [address] [place] [phone] Nia Frederick, MEÑO Referral 08/09/2024 10:30 AM CDT Office Visit [facility] [address] [place] [phone] Nia Frederick, MEÑO Hyperlipidemia, unspecified hyperlipidemia type (Primary Dx); Essential hypertension; Acquired hypothyroidism; Elevated glucose; Weakness; Gait abnormality Discharge Disposition: Discharged to home or Selfcare 08/09/2024 Travel 06/25/2024 Results Follow-Up [facility] Primary Care [address] [phone] Nia Frederick, MEÑO PSA SCREEN, CMP (COMPREHENSIVE METABOLIC PANEL), CBC WITH AUTO DIFFERENTIAL 06/24/2024 Travel 06/12/2024 Refill [facility] [address] [place] [phone] Nia Frederick, MEÑO Medication Refill from Last 3 Months Immunizations Immunization Administration Dates Next Due Influenza Vaccine 11/05/2012 Influenza Vaccine greater than 3 yrs 10/28/2012 Influenza Vaccine less than 3 yrs 12/01/2014 Influenza, High-dose, Quadrivalent 12/23/2020 Influenza, Seasonal, Injecta ble, Undefined 12/01/2014,10/28/2012 Influenza, high-dose, trivalent, PF 11/28,12/04/2019,12/17/2018,2017,11/28/2016,11/03/2015,12/03/2013 PUR FLU HIGH DOSE (FLUZONE) 11/03/2015 PUR PCV-13 06/09/2015 Pneumococcal Vaccine - 13 Valent 06/09/2015 Pneumococcal Vaccine Adult - 23 Valent 02/06/2017,12/03/2013 Pneumococcal Vaccine, Unspec ified Formulation 02/27/2003 TD VACCINE 07/28/2006 Family History Medical History Relation Name Comments Diabetes Brother Heart Disease Brother Heart Disease Father Heart Disease Mother Cancer Sister colon Relation Name Status Comments Brother Father Mother Sister Social History Tobacco Use Types Packs/Day Years Used Date Smoking Tobacco: Never Passive Smoke Exposure: Never Smokeless Tobacco: Never Tobacco Cessation:Counseling Given: No Alcohol Use Standard Drinks/Week Comments No 0 (1 standard drink = 0.6 oz pur e alcohol) [facility] Utilities Answer Date Recorded In the past 12 months has e [employer], gas, oil, or water company threatened to [...] week 02/11/2024 How often do you attend chur ch or taoist services? More than 4 times per year 02/11/2024 Do you belong to any clubs o r organizations such as scientology groups, unions, fraternal or athletic groups, or [...] Total Score - Questions 1-9 0 07/28 [facility] Occupational Stress Questionnaire Answer Date Recorded [...] place to sleep or slept in a correction (including now)? No 06/19/2023 Housing Stability Vital Sign Answer Lemuel e Recorded In the last 12 months, was t here a time when you were not able to pay the mortgage or rent on time? No 02/11/2024 In the past 12 months, how m any times have you moved where you were living? 0 02/11/2024 At any time in the past 12 m [facility], were you homeless or living in a correction (including now)? No 02/11/2024 Education Answer Date [...] Sign Reading Time Taken Comments Blood Pressure 104/62 08/09/2024 10:34 AM CDT Pulse 77 08/09/2024 10:34 AM CDT Temperature 36.4 C (97.6 F) 08/09/2024 10:34 AM CDT Respiratory Rate 12 08/09/2024 10:34 AM CDT Oxygen Saturation 93% 08/09/2024 10:34 AM CDT Inhaled Oxygen Concentration - - Weight 81.6 kg (180 lb) 08/09/2024 10:34 AM CDT Height 175.3 cm (5' 9) 03/01/2024 9:40 AM PRODUCTION MINER Body Mass Index 26.58 03/01/2024 9:40 AM PRODUCTION MINER Plan of Treatment Upcoming Encounters Date Type Department Care Team (Late st Contact Info) Description 02/12/2025 10:15 AM PRODUCTION MINER Office Visit [facility] - [place] [address] [place] [phone] Nia Frederick, PAC [address] [place] [address] Health Maintenance Due Date Last Done Comments Hepatitis C Virus (HCV) Screening 1940 TdaP Immunization 1940 Zoster Immunization (1 of 2) 1989 Respiratory Syncytial Virus (RSV) Immunization (Adult) (1 - 1-dose 75+ series) 2014 SARS-COV-2 Immunization ( season) 2024 11/16/2023, 12/21/2022, 12/14/2021, Additional history exists Influenza Immunization (#1) 2024 10/2 02/2023, 01/13/2023, 12/09/2021, Additional history exists Pneumococcal Immunization (50+ years) Completed 02/06/2017, 06/09/2015, 06/09/2015, Additional history exists Pneumococcal Immunization Combined Discontinued 02/06/2017, 06/09/2015, 06/09/2015, Additional history exists Hepatitis B Immunization Aged Out No longer eligible based on patient's age to complete this topic Human Papillomavirus (HPV) Immunization Aged Out No longer eligible based on patient's age to complete this topic Meningococcal Immunization (ACWY) Aged Out No longer eligible based on patient's age to complete this topic Rotavirus Immunization Aged Out No lo nger eligible based on patient's age to complete this topic Medical Devices Implanted Type Area Waste Management Specialist Device Identifier Shelf Expiration Date Model / Serial / Lot Total Knee Replacement-09/12 Implanted:1996 (Quantity not on file) Procedures Procedure Name Priority Date/Time Associated Diagnosis Comments EXTERNAL PHYSICAL THERAPY REFERRAL Routine 08/26/2024 12:00 AM CDT CBC WITH AUTO DIFFERENTIAL Routine 06/24/2024 7:56 AM CDT Essential hypertension COMPLETE BLOOD COUNT (CBC) WITH DIFF Routine 06/24/2024 7:56 AM CDT Essential hypertension CMP (COMPREHENSIVE METABOLIC PANEL) Routine 06/24/2024 7:56 AM CDT Essential hypertension PSA SCREEN Routine 06/24/2024 7:56 AM CDT Screening for prostate cancer XR - UPPER EXTREMITY 06/10/2024 12:00 AM CDT from Last 3 Months Results * EXTERNAL PHYSICAL THERAPY REFERRAL (08/26/2024 12:00 AM CDT) 08/26/2024 us Nia Frederick PAC OUTPT REFERRALS E XT/INT Final Result SCAN * (ABNORMAL) CBC WITH AUTO DIFFERENTIAL (06/24/2024 7:56 AM CDT) WBC 8.72 4.00 - 12.00 10(3)/mcL 06/24/2024 8:58 AM CDT [facility] RBC 5.77 4.40 - 5.80 10(6)/mcL 06/24/2024 8:58 AM CDT [facility] HEMOGLOBIN (HGB) 16.1 13.0 - 16.5 g/dL 06/24/2024 8:58 AM CDT [facility] HEMATOCRIT (HCT) 51.9(H) 38.0 - 50.0 % 06/24/2024 8:58 AM CDT [facility] MCV 89.9 82.0 - 96.0 fL 06/24/2024 8:58 AM CDT [facility] MCH 27.9 26.0 - 32.0 pg 06/24/2024 8:58 AM CDT [facility] MCHC 31.0 31.0 - 36.0 g/dL 06/24/2024 8:58 AM CDT [facility] PLATELET COUNT 219 140 - 440 10(3)/mcL 06/24/2024 8:58 AM CDT [facility] RDW 13.5 11.8 - 15.5 % 06/24/2024 8:58 AM CDT [facility] MPV 10.8 8.0 - 12.6 fL 06/24/2024 8:58 AM CDT [facility] NEUTROPHILS 63.4 40.0 - 68.0 % 06/24/2024 8:58 AM CDT [facility] LYMPHOCYTES 26.6 19.0 - 49.0 % 06/24/2024 8:58 AM CDT [facility] MONOCYTES 7.7 3.0 - 13.0 % 06/24/2024 8:58 AM CDT [facility] EOSINOPHILS 1.6 0.0 - 8.0 % 06/24/2024 8:58 AM CDT [facility] BASOPHILS 0.7 0.0 - 1.0 % 06/24/2024 8:58 AM CDT [facility] ABSOLUTE NEUTROPHILS 5.53(H) 1.40 - 5.30 10(3)/mcL 06/24/2024 8:58 AM CDT [facility] ABSOLUTE LYMPHOCYTES 2.32 0.90 - 3.30 10(3)/mcL 06/24/2024 8:58 AM CDT [facility] ABSOLUTE MONOCYTES 0.67 0.10 - 0.90 10(3)/mcL 06/24/2024 8:58 AM CDT [facility] ABSOLUTE EOSINOPHIL 0.14 0.00 - 0.50 10(3)/mcL 06/24/2024 8:58 AM CDT [facility] ABSOLUTE BASOPHILS 0.06 0.00 - 0.10 10(3)/mcL 06/24/2024 8:58 AM CDT [facility] NRBC PER 100 WBC 0 06/25/19 8:58 AM CDT [facility] Blood Venipuncture / Unknown 06/24/2024 7:56 AM CDT 06/24/2024 8:53 AM CDT Nia Frederick [facility] HEMATOLOGY ORDERA BLES Final Result [facility] [address] [place] [address] * PSA SCREEN (06/24/2024 7:56 AM CDT) PSA SCREEN, TOTAL 1.16 <4.00 ng/mL 06/24/2024 9:46 AM CDT [facility] Blood Venipuncture / Unknown 06/24/2024 7:56 AM CDT 06/24/2024 8:53 AM CDT Narrative [facility] - 06/24/2024 9:46 AM CDT The ALINITY Total PSA assay is a Chemiluminescent Microparticle Immunoassay (CMIA) for the quantitative determination of total PSA (both free PSA and PSA complexed to [id number]) in human serum. Total PSA values obtained with different assay methods, including Sheikh PSA assays, cannot be used interchangeably. Nia Frederick PAC CHEMISTRY ORDERAB LES Final Result [facility] [address] [place] [address] * CMP (COMPREHENSIVE METABOLIC PANEL) (06/24/2024 7:56 AM CDT) SODIUM 139 136 - 145 mmol/L 06/24/2024 10:28 AM CDT [facility] POTASSIUM 4.6 3.5 - 5.1 mmol/L 06/24/2024 10:28 AM CDT [facility] CHLORIDE 103 98 - 107 mmol/L 06/24/2024 10:28 AM CDT [facility] CO2, VENOUS 29 22 - 30 mmol/L 06/24/2024 10:28 AM CDT [facility] ANION GAP 11.6 <18.0 mmol/L 06/24/2024 10:28 AM CDT [facility] GLUCOSE 93 70 - 99 mg/dL 06/24/2024 10:28 AM CDT [facility] BUN 14 8 - 26 mg/dL 06/24/2024 10:28 AM CDT [facility] CREATININE, BLOOD 0.78 0.70 - 1.30 mg/dL 06/24/2024 10:28 AM CDT [facility] BUN/CREATININE RATIO 18 12 - 20 ratio 06/24/2024 10:28 AM CDT [facility] TOTAL PROTEIN 7.1 6.0 - 8.0 g/dL 06/24/2024 10:28 AM CDT [facility] ALBUMIN 3.7 3.5 - 5.0 g/dL 06/24/2024 10:28 AM CDT [facility] A/G RATIO 1.1 1.0 - 2.2 06/24/2024 10:28 AM CDT [facility] CALCIUM 9.0 8.7 - 10.5 mg/dL 06/24/2024 10:28 AM CDT [facility] T BILI 0.8 0.2 - 1.2 mg/dL 06/24/2024 10:28 AM CDT [facility] SGOT (AST) 36 <43 U/L 06/24/2024 10:28 AM CDT [facility] SGPT (ALT) 24 <56 U/L 06/24/2024 10:28 AM CDT [facility] ALKALINE PHOSPHATASE 76 40 - 150 U/L 06/24/2024 10:28 AM CDT [facility] GFR, ESTIMATED >60 >=60 06/24/2024 10:28 AM CDT [facility] Comment: Creatinine Clearance is the preferred criteria for selecting drug dose adjustments in renally impaired patients. The GFR is provided as additional pertinent clinical information. GFR is reported in mL/min/1.73 sq m. Calculation based on the Chronic Kidney Disease Epidemiology Collaboration (CKD- EPI) equation refit without adjustment for race. GFR, EST. >60 >=60 025 10:28 AM CDT [facility] GFR, EST. NONAFRICAN >60 >=60 06/24/2024 10:28 AM CDT [facility] Blood Venipuncture / Unknown 06/24/2024 7:56 AM CDT 06/24/2024 8:53 AM CDT Nia Frederick PAC CHEMISTRY ORDERAB LES Final Result Performing Organization Address City/[facility]/ZIP Co de Phone Number [facility] [address] [place] [address] * XR - UPPER EXTREMITY (06/10/2024 12:00 AM CDT) 06/10/2024 us Provider Scan IMG DIAGNOSTIC ORDERABLES Final Result SCAN from Last 3 Months Insurance MEDICARE [employer] GENERIC Advance Directives * Full Code (Latest Code Status on File) Date Activated Date Inactivated Comments 05/14/2021 1:50 AM 05/16/2021 5:47 PM CPR-Full Fish atment: FULL ARREST: Attempt Resuscitation/CPR wit intubation and mechanical ventilation. PRE-ARREST: Use entire range of life support measures to stabilize the patient. Care Teams Industrial Health And Safety Professor Relationship Specialty Start Date End Date Nia Frederick, [facility] [address] [place] [address] PCP - General Physician Emd Special Education Teacher 01/27/16 Nick Tran DPM Podiatry 11/20/15 Brian Miller MD [address] [phone] (work) Consulting Physician General Surgery 02/19/24
--- OUTSIDE RECORDS SUMMARY | 2024-09-06 12:33 | XMS_ITS | Encounter Summary ---
Author Organization [facility] Address [address] [place] [address] Phone Care Team Providers Care Clip Loading Machine Adjuster Name Role Phone Nick Tran DPM Unavailable Nia Frederick PAC Primary Care Pro vider Brian Miller MD Unavailable Reason for Visit * Reason Comments Medication Refill Encounter Details Date Type Department Care Team (Late st Contact Info) Description 05/24/2020 Refill [facility] [address] [place] [address] Meka Lackey PAC [address] [place] [address] Medication Refill Social History Tobacco Use Types Packs/Day Years Used Date Smoking Tobacco: Never Smokeless Tobacco: Never Alcohol Use Standard Drinks/Week Comments No 0 (1 standard drink = 0.6 oz pur e alcohol) PHQ-2 Answer Date Recorded Total Score - Questions 1-9 0 03/31 Education Answer Date Recorded What is the [...] encounter Miscellaneous Notes * Telephone Encounter - Sravanthi Horton RN - 05/25/2020 11:28 AM CDT Please review and sign. documented in this encounter Plan of Treatment Upcoming Encounters Date Type Department Care Team (Late st Contact Info) Description 02/12/2025 10:15 AM HEALTHCARE ADMINISTRATOR Office Visit [facility] - [place] [address] [place] [address] Nia Frederick, PAC [address] [place] [address] documented as of this encounter Visit Diagnoses Not on filedocumented in this encounter Additional Health Concerns Infection Onset Date Last Indicated Resolved Time COVID - 19 05/21/2021 05/21/2021 05/21/2021 10:3 3 AM CDT COVID - 19 05/21/2021 05/21/2021 06/10/2021 12:1 6 AM CDT COVID - 19 05/04/2023 05/04/2023 05/04/2023 1:07 PM HEALTHCARE ADMINISTRATOR Respiratory Rule-Out 05/04/2023 05/04/2023 024 1:21 PM HEALTHCARE ADMINISTRATOR Assessment Noted Time PHQ-9 Depression Total Score: 0 04/24/19 20 9:54 AM HEALTHCARE ADMINISTRATOR documented as of this encounter Care Teams Clip Loading Machine Adjuster Relationship Specialty Start Date End Date Nia Frederick, PAC [address] [place] [address] PCP - General Physician Manager Resource 01/27/16 Nick Tran DPM Podiatry 11/20/15 Brian Miller MD [address] [address] Consulting Physician General Surgery 02/19/24 documented as of this encounter
--- OUTSIDE RECORDS SUMMARY | 2024-09-06 12:33 | XMS_ITS | Encounter Summary ---
Author Organization [facility] Address [address] [address] Phone Care Team Providers Care Worm Sorter Name Role Phone Nick Tran DPM Unavailable [phone] Nia Frederick PAC Primary Care Pro vider Brian Miller MD Unavailable [phone] Reason for Visit * Reason Comments Medication Refill Encounter Details Date Type Department Care Team (Late st Contact Info) Description 06/30/2023 Refill [facility] - Family [facility] [address] [place] [phone] Nia Frederick, PAC [address] [place] [address] Medication Refill Social History Tobacco Use Types Packs/Day Years Used Date Smoking Tobacco: Never Smokeless Tobacco: Never Alcohol Use Standard Drinks/Week Comments No 0 (1 standard drink = 0.6 oz pur e alcohol) [facility] Utilities Answer Date Recorded In the past 12 months has [employer] electric, gas, oil, or water company threatened to shut off services in your home? No 06/19/2023 Social Connection and Isolation Panel Answer Date Recorded In a typical week, how many times do you talk on the phone with family, friends, or neighbors? Twice a week 06/19/2023 How often do you get togethe r with friends or relatives? Twice a week 06/19/2023 How often do you attend chur or oriental orthodox services? More than 4 times per year 06/19/2023 Do you belong to any clubs o r organizations such as episcopal groups, unions, fraternal or athletic groups, or school groups? No 06/19/2023 How often do you attend meet ings of the clubs or organizations you belong to? Never 06/19/2023 Are you , , di vorced, , never , or living with a partner? 06/19/2023 AUDIT-C Answer Date Recorded Q1: How often do you have a drink containing alcohol? Never 06/19/2023 Q2: How many drinks containi ng alcohol do you have on a typical day when you are drinking? Patient does not drink Q3: How often do you have si x or more drinks on one occasion? Never 06/19/2023 Overall Financial Resource Strain (CARDIA) Answe r Date Recorded How hard is it for you to pa y for the very basics like food, housing, medical care, and heating? Not hard at all 06/19/2023 PHQ-2 Answer Date Recorded Total Score - Questions 1-9 0 04/27 [facility] - Occupational Stress Questionnaire Answer Date Recorded Do you feel stress - tense, restless, nervous, or anxious, or unable to sleep at night because your mind is troubled all the time - these days? Not at all 06/19/2023 Exercise Vital Sign Answer Date Recorde d On average, how many days pe r week do you engage in moderate to strenuous exercise (like a brisk walk)? 0 days 06/19/2023 On average, how many minutes do you engage in exercise at this level? 0 min 06/19/2023 Hunger Vital Sign Answer Date Recorded Within the past 12 months, y ou worried that your food would run out before you got the money to buy more. Never true 06/19/19 24 Within the past 12 months, t he food you bought just didn't last and you didn't have money to get more. Never true 06/19/2023 PRAPARE - Transportation Answer Date Re corded In the past 12 months, has l ack of transportation kept you from medical appointments or from getting medications? No 05/29 In the past 12 months, has l ack of transportation kept you from meetings, work, or from getting things needed for daily living? No 06/19/2023 Housing Stability Vital Sign Answer [...] place to sleep or slept in a care home (including now)? No 06/19/2023 Education Answer Date Recorded What is the [...] Telephone Encounter - Sunita Mack RN - 06/30/2023 9:21 AM CDT Medication(s) refilled and signed per [facility] Chronic Medication Refill Standing Order for Pediatricand Adult Patients. Requested Prescriptions Pending Prescriptions Disp Refills simvastatin (ZOCOR) 20 MG Tablet [Pharmacy Med Name: SIMVASTATIN 20 MG TABLET] 90 Tablet 1 Sig: TAKE 1 TABLET BY MOUTH EVERY DAY Hmg CoA Reductase Inhibitors Protocol Passed - 06/30/2023 9:09 AM Passed - Visit with relevant provider in past 12 months or upcoming 90 days Recent Visits Date Type Provider Dept 06/21/23 Office Visit Nia Frederick PAC [facility] 05/25/23 Office Visit Nia Frederick PAC [facility] 03/01/23 Office Visit Nia Frederick PAC [facility] 11/25/22 Office Visit Nia Frederick PAC [facility] Showing recent visits within past 365 days and meeting all other requirements Future Appointments No visits were found meeting these conditions. Showing future appointments within next 90 days and meeting all other requirements Passed - Lipid panel in past 12 months LDL Date Value Ref Range Status 05/24/2023 99 <130 mg/dL Final HDL CHOLESTEROL Date Value Ref Range Status 05/24/2023 30 (L) >40 mg/dL Final CHOLESTEROL Date Value Ref Range Status 05/24/2023 160 <200 mg/dL Final TRIGLYCERIDES Date Value Ref Range Status 05/24/2023 156 (H) <150 mg/dL Final VLDL Date Value Ref Range Status 05/24/2023 31 10 - 50 mg/dL Final CHOL/HDL RATIO Date Value Ref Range Status 05/24/2023 5.3 (H) 0.0 - 4.4 Final NON-HDL CHOLESTEROL Date Value Ref Range Status 05/24/2023 130 (H) <130 mg/dL Final Passed - CMP in past 12 months SODIUM Date Value Ref Range Status 05/24/2023 140 136 - 145 mmol/L Final POTASSIUM Date Value Ref Range Status 05/24/2023 4.8 3.5 - 5.1 mmol/L Final CHLORIDE Date Value Ref Range Status 05/24/2023 105 98 - 107 mmol/L Final CO2, VENOUS Date Value Ref Range Status 05/24/2023 29 22 - 30 mmol/L Final ANION GAP Date Value Ref Range Status 05/24/2023 10.8 <18.0 mmol/L Final GLUCOSE Date Value Ref Range Status 05/24/2023 82 70 - 99 mg/dL Final BUN Date Value Ref Range Status 05/24/2023 16 8 - 26 mg/dL Final CREATININE, BLOOD Date Value Ref Range Status 05/24/2023 0.80 0.70 - 1.30 mg/dL Final BUN/CREATININE RATIO Date Value Ref Range Status 05/24/2023 20 12 - 20 ratio Final TOTAL PROTEIN Date Value Ref Range Status 05/24/2023 6.8 6.3 - 8.2 g/dL Final ALBUMIN Date Value Ref Range Status 05/24/2023 3.7 3.5 - 5.0 g/dL Final A/G RATIO Date Value Ref Range Status 05/24/2023 1.2 1.0 - 2.2 Final CALCIUM Date Value Ref Range Status 05/24/2023 8.8 8.7 - 10.5 mg/dL Final T BILI Date Value Ref Range Status 05/24/2023 0.8 0.2 - 1.2 mg/dL Final SGOT (AST) Date Value Ref Range Status 05/24/2023 25 5 - 34 U/L Final SGPT (ALT) Date Value Ref Range Status 05/24/2023 23 0 - 55 U/L Final ALKALINE PHOSPHATASE Date Value Ref Range Status 05/24/2023 85 40 - 150 U/L Final GFR, EST. NONAFRICAN Date Value Ref Range Status 05/24/2023 >60 >=60 Final GFR, EST. Date Value Ref Range Status 05/24/2023 >60 >=60 Final GFR, ESTIMATED Date Value Ref Range Status 05/24/2023 >60 >=60 Final Comment: Creatinine Clearance is the preferred criteria for selecting drug dose adjustments in renally impaired patients. The GFR is provided as additional pertinent clinical information. GFR is reported in mL/min/1.73 sq m. Calculation based on the Chronic Kidney Disease Epidemiology Collaboration (CKD- EPI) equation refitwithout adjustment for race. IS THE PATIENT REQUIRED TO BE FASTING? Date Value Ref Range Status 05/24/2023 No Final furosemide (LASIX) 20 MG Tablet [Pharmacy Med Name: FUROSEMIDE 20 MG TABLET] 90 Tablet 3 Sig: TAKE 1 TABLET BY MOUTH EVERY DAY Diuretics Protocol Passed - 06/30/2023 9:09 AM Passed - Serum potassium on record in past 12 months POTASSIUM Date Value Ref Range Status 05/24/2023 4.8 3.5 - 5.1 mmol/L Final Passed - Serum sodium on record in past 12 months SODIUM Date Value Ref Range Status 05/24/2023 140 136 - 145 mmol/L Final Passed - Blood pressure on record in past 12 months Clinician-entered: BP Readings from Last 3 Encounters: 06/21/23 112/80 05/25/23 120/82 05/04/23 136/84 Patient-entered: No data recorded Passed - Visit with relevant provider in past 12 months or upcoming 90 days Recent Visits Date Type Provider Dept 06/21/23 Office Visit Nia Frederick, MEÑO [facility] 05/25/23 Office Visit Nia Frederick, PAC [facility] 03/01/23 Office Visit OtonielNia, PAC [facility] 11/25/22 Office Visit Otoniel Niadeshawn Quiroz, PAC [facility] Showing recent visits within past 365 days and meeting all other requirements Future Appointments No visits were found meeting these conditions. Showing future appointments within next 90 days and meeting all other requirements Passed - GFR on record in past 12 months GFR, EST. NONAFRICAN Date Value Ref Range Status 05/24/2023 >60 >=60 Final documented in this encounter Plan of Treatment Upcoming Encounters Date Type Department Care Team (Late st Contact Info) Description 02/12/2025 10:15 AM GROUP EXERCISE CLASS INSTRUCTOR [facility] - [place] [address] [place] [address] Nia Frederick, MEÑO [address] [place] [address] documented as of this encounter Visit Diagnoses Not on filedocumented in this encounter Additional Health Concerns Assessment Noted Time PHQ-9 Depression Total Score: 0 09/10/19 21 10:00 AM CDT documented as of this encounter Care Teams Worm Sorter Relationship Specialty Start Date End Date Nia Frederick PAC [address] [place] [address] PCP - General Physician Campus Recruiting Intern 01/27/16 Nick Tran DPM Podiatry 11/20/15 Brian Miller MD [address] [address] Consulting Physician General Surgery 02/19/24 documented as of this encounter
--- OUTSIDE RECORDS SUMMARY | 2024-09-06 12:33 | XMS_ITS | Continuity of Care Document ---
Author Organization [facility] Address [address] [facility] [address] [place] [address] Phone Care Team Providers Care Metal Container Maker Name Role Phone Les Smiley DO Unavailable Unavailable Advance Directives Directive Yes / No Effective Date File Name No Information Encounters Encounter Description Practice Location Reason(s) For Visit Diagnoses Date Provider Providers Copied on Encounter [facility], [id number] [place] [address] [address], [place], [place], [id number], tel:[phone] [facility] No Information Sherice Mckeon. [address] [place], [address], [place]. tel: [phone] Family History Family Member Type Diagnosis Age At Onset No Information Payers Payer name Insurance type Covered libertarian ID Authoriza tion(s) [place] [id number] Social History Type Description Quantity Date Captured Comments Sex Male Smoking Status No Information Chief Complaint And Reason For Visit No Information Reason For Referral Reason For Referral No Information History Of Present Illness Encounter Date Complaint History Of Prese nt Illness No Information Functional Status Date Functional Assessmen t No Information Instructions Date Instruction Additional Infor mation No Information Assessments Type Assessment Date No Information Patient Care Teams Name Effective Dates (start - stop) Status Members No Information
--- OUTSIDE RECORDS SUMMARY | 2024-09-06 12:33 | XMS_ITS | Encounter Summary ---
Author Organization [facility] Address [address] [place] [address] Phone Care Team Providers Care Crusher And Binder Operator Name Role Phone Nick Tran DPM Unavailable Nia Frederick PAC Primary Care Pro vider Brian Miller MD Unavailable Reason for Visit * Reason Comments Medication Refill Encounter Details Date Type Department Care Team (Late st Contact Info) Description 08/03/2021 Refill [facility] [address] [phone] Nia Frederick, PAC [address] [place] [address] Medication Refill Social History Tobacco Use Types [...] Telephone Encounter - Sravanthi Horton RN - 08/04/2021 10:38 AM CDT Medication failed the protocol, provider to review and approve the medication order if appropriate. Requested Prescriptions Pending Prescriptions Disp Refills hydroCHLOROthiazide (MICROZIDE) 12.5 MG Capsule [Pharmacy Med Name: HYDROCHLOROTHIAZIDE 12.5 MG CP]36 Capsule 1 Sig: Take 1 Capsule by mouth Every Monday, Monday, Monday for 30 days. There is no refill protocol information for this order documented in this encounter Plan of Treatment Upcoming Encounters Date Type Department Care Team (Late st Contact Info) Description 02/12/2025 10:15 AM CAREER CENTER ADVISOR Office Visit [facility] - Internal [facility] [place] [address] [place] [address] Nia Frederick, PAC [address] [place] [address] documented as of this encounter Visit Diagnoses Not on filedocumented in this encounter Additional Health Concerns Infection Onset Date Last Indicated Resolved Time COVID - 19 05/04/2023 05/04/2023 05/04/2023 1:07 PM CAREER CENTER ADVISOR Respiratory Rule-Out 05/04/2023 05/04/2023 024 1:21 PM CAREER CENTER ADVISOR Assessment Noted Time PHQ-9 Depression Total Score: 0 09/10/19 21 10:00 AM CDT documented as of this encounter Care Teams Crusher And Binder Operator Relationship Specialty Start Date End Date Nia Frederick, PAC [address] [place] [address] PCP - General Physician Retail Warehouse Supervisor 01/27/16 Nick Tran DPM Podiatry 11/20/15 Brian Miller MD [address] [address] Consulting Physician General Surgery 02/19/24 documented as of this encounter
--- OUTSIDE RECORDS SUMMARY | 2024-09-06 12:33 | XMS_ITS | Encounter Summary ---
Author Organization [facility] Address [address] [place] [address] Phone Care Team Providers Care Acreage Reporter Name Role Phone Nick Tran DPM Unavailable [phone] Nia Frederick PAC Primary Care Pro vider Brian Miller MD Unavailable Reason for Visit * Reason Comments Medication Refill Encounter Details Date Type Department Care Team (Late st Contact Info) Description 11/24/2021 Refill [facility] - [place] [address] [place] [phone] Nia Frederick, PAC [address] [place] [address] Medication Refill Social History Tobacco Use Types [...] Telephone Encounter - Sravanthi Horton RN - 11/24/2021 1:43 PM CDT Medication failed the protocol, provider to review and approve the medication order if appropriate. Requested Prescriptions Pending Prescriptions Disp Refills baclofen (LIORESAL) 10 MG Tablet [Pharmacy Med Name: BACLOFEN 10 MG TABLET] 45 Tablet 0 Sig: TAKE 1/2 TABLET BY MOUTH 3 TIMES DAILY NEEDED FOR MUSCLE SPASMS FOR UP TO 30 DAYS. Not Delegated - Muscle Relaxants Protocol Failed - 11/24/2021 11:30 AM Failed - This refill cannot be delegated Failed - Not delegated, patient not between 1 and 65 years of age Passed - Visit with relevant provider in past 12 months or upcoming 90 days Recent Visits Date Type Provider Dept 06/25/21 Office Visit Nia Frederick, PAC [facility] 05/28/21 Office Visit Nia Frederick, PAC [facility] 05/21/21 Office Visit Nia Frederick PAC [facility] 05/13/21 Office Visit Nia Frederick, PAC [facility] 03/24/21 Office Visit Nia Frederick PAC [facility] Showing recent visits within past 365 days and meeting all other requirements Today's Visits Date Type Provider Dept 11/24/21 Office Visit Nia Frederick PAC [facility] Showing today's visits and meeting all other requirements Future Appointments No visits were found meeting these conditions. Showing future appointments within next 90 days and meeting all other requirements documented in this encounter Plan of Treatment Upcoming Encounters Date Type Department Care Team (Late st Contact Info) Description 02/12/2025 10:15 AM METAL SHAPING MACHINE OPERATOR [facility] [place] [address] [place] [address] Nia Frederick, PAC [address] [place] [address] documented as of this encounter Visit Diagnoses Not on filedocumented in this encounter Additional Health Concerns Infection Onset Date Last Indicated Resolved Time COVID - 19 05/04/2023 05/04/2023 05/04/2023 1:07 PM METAL SHAPING MACHINE OPERATOR Respiratory Rule-Out 05/04/2023 05/04/2023 024 1:21 PM METAL SHAPING MACHINE OPERATOR Assessment Noted Time PHQ-9 Depression Total Score: 0 09/10/19 21 10:00 AM CDT documented as of this encounter Care Teams Acreage Reporter Relationship Specialty Start Date End Date Nia Frederick, PAC [address] [place] [address] PCP - General Physician Director Drug 01/27/16 Nick Tran DPM Podiatry 11/20/15 Brian Miller MD [address] [address] Consulting Physician General Surgery 02/19/24 documented as of this encounter
--- OUTSIDE RECORDS SUMMARY | 2024-09-06 12:33 | XMS_ITS | Encounter Summary ---
Author Organization [facility] Address [address] [place] [address] Phone Care Team Providers Care Steam Conditioner Operator Name Role Phone Nick Tran DPM Unavailable Nia Fredreick PAC Primary Care Pro vider Brian Miller MD Unavailable Reason for Visit * Reason Comments Medication Refill Encounter Details Date Type Department Care Team (Late st Contact Info) Description 12/18/2021 Refill [facility] - [place] [address] [place] [phone] Nia Frederick, PAC [address] [place] [address] Medication Refill Social History Tobacco Use Types [...] Telephone Encounter - Sunita Mack RN - 12/20/2021 9:09 AM CDT Medication failed the protocol, provider to review and approve the medication order if appropriate. Requested Prescriptions Pending Prescriptions Disp Refills baclofen (LIORESAL) 10 MG Tablet [Pharmacy Med Name: BACLOFEN 10 MG TABLET] 45 Tablet 0 Sig: TAKE 1/2 TABLET BY MOUTH 3 TIMES DAILY NEEDED FOR MUSCLE SPASMS FOR UP TO 30 DAYS. Not Delegated - Muscle Relaxants Protocol Failed - 12/18/2021 8:32 AM Failed - This refill cannot be delegated Failed - Not delegated, patient not between 1 and 65 years of age Passed - Visit with relevant provider in past 12 months or upcoming 90 days Recent Visits Date Type Provider Dept 11/24/21 Office Visit Nia Frederick, PAC [facility] 06/25/21 Office Visit Nia Frederick, PAC [facility] 05/28/21 Office Visit Nia Frederick, PAC [facility] 05/21/21 Office Visit Nia Frederick, PAC [facility] 05/13/21 Office Visit Nia Frederick, PAC [facility] 03/24/21 Office Visit Nia Frederick, PAC [facility] Showing recent visits within past 365 days and meeting all other requirements Future Appointments No visits were found meeting these conditions. Showing future appointments within next 90 days and meeting all other requirements documented in this encounter Plan of Treatment Upcoming Encounters Date Type Department Care Team (Pat sanchez Contact Info) Description 02/12/2025 10:15 AM NUT GRADER Office Visit [facility] - Internal [facility] - [place] [address] [place] [address] Nia Frederick, PAC [address] [place] [address] documented as of this encounter Visit Diagnoses Not on filedocumented in this encounter Additional Health Concerns Infection Onset Date Last Indicated Resolved Time COVID - 19 05/04/2023 05/04/2023 05/04/2023 1:07 PM NUT GRADER Respiratory Rule-Out 05/04/2023 05/04/2023 024 1:21 PM NUT GRADER Assessment Noted Time PHQ-9 Depression Total Score: 0 09/10/19 21 10:00 AM CDT documented as of this encounter Care Teams Steam Conditioner Operator Relationship Specialty Start Date End Date Nia Frederick, PAC [address] [place] [address] PCP - General Physician High Lift Driver 01/27/16 Nick Tran DPM Podiatry 11/20/15 Brian Miller MD [address] [address] Consulting Physician General Surgery 02/19/24 documented as of this encounter
--- OUTSIDE RECORDS SUMMARY | 2024-09-06 12:33 | XMS_ITS | Encounter Summary ---
Author Organization [facility] Address [address] [place] [address] Phone Care Team Providers Care Promotion Producer Name Role Phone Nick Tran DPM Unavailable Nia Frederick PAC Primary Care Pro vider Brian Miller MD Unavailable Reason for Visit * Reason Comments Medication Refill Encounter Details Date Type Department Care Team (Late st Contact Info) Description 01/13/2022 Refill [facility] - [place] [address] [place] [phone] Nia Frederick, PAC [address] [place] [address] Medication Refill Social History Tobacco Use Types [...] Telephone Encounter - Sravanthi Horton RN - 01/13/2022 10:36 AM LOADER MAGAZINE GRINDER Medication failed the protocol, provider to review and approve the medication order if appropriate. Requested Prescriptions Pending Prescriptions Disp Refills baclofen (LIORESAL) 10 MG Tablet [Pharmacy Med Name: BACLOFEN 10 MG TABLET] 45 Tablet 0 Sig: TAKE 1/2 TABLET BY MOUTH 3 TIMES DAILY NEEDED FOR MUSCLE SPASMS FOR UP TO 30 DAYS. Not Delegated - Muscle Relaxants Protocol Failed - 01/13/2022 7:47 AM Failed - This refill cannot be delegated Failed - Not delegated, patient not between 1 and 65 years of age Passed - Visit with relevant provider in past 12 months or upcoming 90 days Recent Visits Date Type Provider Dept 11/24/21 Office Visit Nia Frederick, PAC [facility] 06/25/21 Office Visit Nia Frederick, PAC [facility] 05/28/21 Office Visit Nia Frederick, PAC [facility] 05/21/21 Office Visit Nia Frederick, PAC [facility] 05/13/21 Office Visit Nia Frederick, PAC [facility] 03/24/21 Office Visit Nia Frederick, PAC [facility] Showing recent visits within past 365 days and meeting all other requirements Future Appointments No visits were found meeting these conditions. Showing future appointments within next 90 days and meeting all other requirements ER MAGAZINE GRINDER documented in this encounter Plan of Treatment Upcoming Encounters Date Type Department Care Team (Late st Contact Info) Description 02/12/2025 10:15 AM LOADER MAGAZINE GRINDER Office Visit [facility] - Internal Medicine - [place] [address] [place] [address] Nia Frederick, PAC [address] [place] [address] documented as of this encounter Visit Diagnoses Not on filedocumented in this encounter Additional Health Concerns Infection Onset Date Last Indicated Resolved Time COVID - 19 05/04/2023 05/04/2023 05/04/2023 1:07 PM LOADER MAGAZINE GRINDER Respiratory Rule-Out 05/04/2023 05/04/2023 024 1:21 PM LOADER MAGAZINE GRINDER Assessment Noted Time PHQ-9 Depression Total Score: 0 09/10/19 21 10:00 AM CDT documented as of this encounter Care Teams Promotion Producer Relationship Specialty Start Date End Date Nia Frederick, PAC [address] [place] [address] PCP - General Physician Ob/Gyn Nurse 01/27/16 Nick Tran DPM Podiatry 11/20/15 Brian Miller MD [address] [address] Consulting Physician General Surgery 02/19/24 documented as of this encounter
--- OUTSIDE RECORDS SUMMARY | 2024-09-06 12:33 | XMS_ITS | Encounter Summary ---
Author Organization [facility] Address [address] [place] [address] Phone Care Team Providers Care Melter Supervisor Oxygen Furnace Name Role Phone Nick Tran DPM Unavailable [phone] Nia Frederick PAC Primary Care Pro vider Brian Miller MD Unavailable [phone] Reason for Visit * Reason Comments Medication Refill Encounter Details Date Type Department Care Team (Late st Contact Info) Description 05/03/2023 Refill [facility] - Internal Medicine - [place] [address] [place] [phone] Nia Frederick, PAC [address] [place] [address] Medication Refill Social History Tobacco Use Types Packs/Day Years Used Date Smoking Tobacco: Never Smokeless Tobacco: Never Alcohol Use Standard Drinks/Week Comments No 0 (1 standard drink = 0.6 oz pur e alcohol) [facility] Utilities Answer Date Recorded In the past 12 months has [employer] electric, gas, oil, or water company threatened to shut off services in your home? No 02/28/2023 Social Connection and Isolation Panel Answer Date Recorded In a typical week, how many times do you talk on the phone with family, friends, or neighbors? Three times a week 02/28/2023 How often do you get togethe r with friends or relatives? More than three times a week 02/28/2023 How often do you attend chur or catholic services? More than 4 times per year 02/28/2023 Do you belong to any clubs o r organizations such as orthodoxy groups, unions, fraternal or athletic groups, or school groups? No 02/28/2023 Attends Club or Organization Meetings Not on joe e 02/28/2023 Are you , , di vorced, , never , or living with a partner? 02/28/2023 AUDIT-C Answer Date Recorded Q1: How often do you have a drink containing alcohol? Never 02/28/2023 Q2: How many drinks containi ng alcohol do you have on a typical day when you are drinking? Patient does not drink Q3: How often do you have si x or more drinks on one occasion? Never 02/28/2023 Overall Financial Resource Strain (CARDIA) Answe r Date Recorded How hard is it for you to pa y for the very basics like food, housing, medical care, and heating? Not hard at all 02/28/2023 PHQ-2 Answer Date Recorded Total Score - Questions 1-9 0 04/27 [facility] of Occupat ional Health - Occupational Stress Questionnaire Answer Date Recorded Do you feel stress - tense, restless, nervous, or anxious, or unable to sleep at night because your mind is troubled all the time - these days? Only a little 02/28/2023 Exercise Vital Sign Answer Date Recorde d On average, how many days pe r week do you engage in moderate to strenuous exercise (like a brisk walk)? 0 days 02/28/2023 On average, how many minutes do you engage in exercise at this level? 0 min 02/28/2023 Hunger Vital Sign Answer Date Recorded Within the past 12 months, y ou worried that your food would run out before you got the money to buy more. Never true 02/28/19 24 Within the past 12 months, t he food you bought just didn't last and you didn't have money to get more. Never true 02/28/2023 PRAPARE - Transportation Answer Date Re corded In the past 12 months, has l ack of transportation kept you from medical appointments or from getting medications? No 03/2023 In the past 12 months, has l ack of transportation kept you from meetings, work, or from getting things needed for daily living? No 02/28/2023 Housing Stability Vital Sign Answer Lemuel e Recorded In the last 12 months, was t here a time when you were not able to pay the mortgage or rent on time? No 02/28/2023 Number of Places Lived in the Last Year Not on f ile 02/28/2023 In the last 12 months, was t here a time when you did not have a steady place to sleep or slept in a correction (including now)? No 02/28/2023 Education Answer Date Recorded What is the [...] Telephone Encounter - Sunita Mack RN - 05/03/2023 9:48 AM CST Per nursing clinical judgement, provider to review and approve the medication(s) order(s) if appropriate. Requested Prescriptions Pending Prescriptions Disp Refills carvedilol (COREG) 3.125 MG Tablet [Pharmacy Med Name: CARVEDILOL 3.125 MG TABLET] 60 Tablet 0 Sig: TAKE 1 TABLET BY MOUTH EVERY DAY Beta-Blockers Protocol Passed - 05/03/2023 8:42 AM Passed - BP on record in the past year Clinician-entered: BP Readings from Last 3 Encounters: 03/01/23 110/74 11/25/22 106/60 05/25/22 106/68 Patient-entered: No data recorded Passed - Visit with relevant provider in past 12 months or upcoming 90 days Recent Visits Date Type Provider Dept 03/01/23 Office Visit Nia Frederick, [facility] [place] 11/25/22 Office Visit Nia Frederick, PAC [facility] [place] 05/25/22 Office Visit Nia Frederick PAC [facility] [place] Showing recent visits within past 365 days and meeting all other requirements Future Appointments Date Type Provider Dept 06/21/23 Appointment Nia Frederick PAC [facility] [place] Showing future appointments within next 90 days and meeting all other requirements spironolactone (ALDACTONE) 25 MG Tablet [Pharmacy Med Name: SPIRONOLACTONE 25 MG TABLET] 90 Tablet 3 Sig: TAKE 1 TABLET BY MOUTH EVERY DAY Diuretics Protocol Passed - 05/03/2023 8:42 AM Passed - Serum potassium on record in past 12 months POTASSIUM Date Value Ref Range Status 11/25/2022 4.3 3.5 - 5.1 mmol/L Final Passed - Serum sodium on record in past 12 months SODIUM Date Value Ref Range Status 11/25/2022 139 136 - 145 mmol/L Final Passed - Blood pressure on record in past 12 months Clinician-entered: BP Readings from Last 3 Encounters: 03/01/23 110/74 11/25/22 106/60 05/25/22 106/68 Patient-entered: No data recorded Passed - Visit with relevant provider in past 12 months or upcoming 90 days Recent Visits Date Type Provider Dept 03/01/23 Office Visit Nia Frederick PAC [facility] [place] 11/25/22 Office Visit Nia Frederick, PAC [facility] [place] 05/25/22 Office Visit Nia Frederick PAC [facility] [place] Showing recent visits within past 365 days and meeting all other requirements Future Appointments Date Type Provider Dept 06/21/23 Appointment Nia Frederick PAC [facility] [place] Showing future appointments within next 90 days and meeting all other requirements Passed - GFR on record in past 12 months GFR, EST. NONAFRICAN Date Value Ref Range Status 11/25/2022 >60 >=60 Final MACY SCHEDULER documented in this encounter Plan of Treatment Upcoming Encounters Date Type Department Care Team (Late st Contact Info) Description 02/12/2025 10:15 AM PHARMACY SCHEDULER Office Visit [facility] - Internal Medicine [place] [address] [place] [address] Nia Frederick, PAC [address] [place] [address] documented as of this encounter Visit Diagnoses Not on filedocumented in this encounter Additional Health Concerns Infection Onset Date Last Indicated Resolved Time COVID - 19 05/04/2023 05/04/2023 05/04/2023 1:07 PM PHARMACY SCHEDULER Respiratory Rule-Out 05/04/2023 05/04/2023 024 1:21 PM PHARMACY SCHEDULER Assessment Noted Time PHQ-9 Depression Total Score: 0 09/10/19 21 10:00 AM CDT documented as of this encounter Care Teams Melter Supervisor Oxygen Furnace Relationship Specialty Start Date End Date Nia Frederick, PAC [address] [place] [address] PCP - General Physician Field Mechanical Meter Tester 01/27/16 Nick Tran DPM Podiatry 11/20/15 Brian Miller MD [address] [phone] Consulting Physician General Surgery 02/19/24 documented as of this encounter
--- OUTSIDE RECORDS SUMMARY | 2024-09-06 12:33 | XMS_ITS | Clinical Summary ---
Author Organization 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 Continue omeprazole Gastroesophageal reflux disease without esophagi tis 02/07/2022 Assessment & Plan (02/07/2022 11:14 AM DIRECTOR GLOBAL MARKET RESEARCH): 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 Continue omeprazole LPR discussed and Handout provided Cough 08/15/2014 Overview (06/03/2016): Cough Surgical History Surgery Date Site/Laterality Comments JOINT REPLACEMENT 02/28/1996 - 02/26/1997 Bilateral knees CARPAL TUNNEL RELEASE Medical History Medical History Date Comments Hx Other Medical hypothyroid Hypertension Hypertension Hx Other Medical Gluten intolera nce Hx Other Medical GERD Hx Other Medical Bilateral Elbow 1989 Hx Other Medical Bilateral knne replacement 1996 Hx Other Medical Carpal Tunnel 2 014 Hx Other Medical Hand surgery 20 15 Hx of blood clots Thyroid disease Kidney stone Gout Family History Medical History Relation Name Comments No Known Problems Father No Known Problems Mother Relation Name Status Comments Father Mother Social History Tobacco Use Types Packs/Day Years Used Date Smoking Tobacco: Never Smokeless Tobacco: Never Tobacco Cessation:Counseling Given: Not Answered Alcohol Use Standard Drinks/Week Comments No 0 (1 standard drink = 0.6 oz pur e alcohol) Sex and Gender Information Value Date Recorded Sex Assigned at Not on file Legal Sex Male 10:14 AM DIRECTOR GLOBAL MARKET RESEARCH Gender Identity Not on file Sexual Orientation Not on file Obstetrics History Last Filed Vital Signs Vital Sign Reading Time Taken Comments Blood Pressure 113/68 02/07/2022 10:48 AM DIRECTOR GLOBAL MARKET RESEARCH Pulse 75 02/07/2022 10:48 AM DIRECTOR GLOBAL MARKET RESEARCH Temperature 36.3 C (97.4 F) 02/07/2022 10:48 AM DIRECTOR GLOBAL MARKET RESEARCH Respiratory Rate 16 02/07/2022 10:48 AM DIRECTOR GLOBAL MARKET RESEARCH Oxygen Saturation 97% 02/07/2022 10:48 AM DIRECTOR GLOBAL MARKET RESEARCH Inhaled Oxygen Concentration - - Weight 85.3 kg (188 lb) 02/07/2022 10:48 AM DIRECTOR GLOBAL MARKET RESEARCH Height 175.3 cm (5' 9) 02/07/2022 10:48 AM DIRECTOR GLOBAL MARKET RESEARCH Body Mass Index 27.76 02/07/2022 10:48 AM DIRECTOR GLOBAL MARKET RESEARCH Plan of Treatment Health Maintenance Due Date Last Done Comments Depression Screening 1940 Fall Risk Assessment 1940 Hepatitis B Screening 1958 Zoster Vaccine (1 of 2) 1989 Well Visit 65+ 01/09/2004 DTaP/Tdap/Td Vaccine (1 - Tdap) 07/29/2006 7 Covid-19 Vaccine (2023-2 5 season) 2023 12/14/2021, 10/13/2021, 02/02/2021, Additional history exists Influenza Vaccine (Season Ended) 2024 12/09/2021, 12/23/2020, 12/04/2019, Additional history exists Pneumococcal vaccine 65+ Completed 017, 06/09/2015, 12/03/2013 Insurance MEDICARE COMMERCIAL GENERIC COMMERCIAL GENERIC MEDICARE Care Teams Tipple Engineer Relationship Specialty Start Date End Date Nia Frederick PA PCP - General Neurosurgery 07/12/17
--- OUTSIDE RECORDS SUMMARY | 2024-09-06 12:33 | XMS_ITS | Encounter Summary ---
Author Organization [facility] Address [address] [place] [address] Phone Care Team Providers Care Card Processing Clerk Name Role Phone Nick Tran DPM Unavailable [phone] Nia Frederick PAC Primary Care Pro vider Brian Miller MD Unavailable Reason for Visit * Reason Comments Medication Refill Encounter Details Date Type Department Care Team (Late st Contact Info) Description 05/14/2020 Refill [facility] [address] [place], [place] [id number] Nia Frederick, PAC [address] [place] [address] Medication Refill Social History Tobacco Use Types [...] Telephone Encounter - Sravanthi Horton RN - 05/14/2020 3:09 PM CDT Please review and sign. documented in this encounter Plan of Treatment Upcoming Encounters Date Type Department Care Team (Late st Contact Info) Description 02/12/2025 10:15 AM AIRPORT LOCATION MANAGER Office Visit [facility] - Internal Medicine - [place] [address] [place] [address] Nia Frederick, PAC [address] [place] [address] documented as of this encounter Visit Diagnoses Not on filedocumented in this encounter Additional Health Concerns Infection Onset Date Last Indicated Resolved Time COVID - 19 05/21/2021 05/21/2021 05/21/2021 10:3 3 AM CDT COVID - 19 05/21/2021 05/21/2021 06/10/2021 12:1 6 AM CDT COVID - 19 05/04/2023 05/04/2023 05/04/2023 1:07 PM AIRPORT LOCATION MANAGER Respiratory Rule-Out 05/04/2023 05/04/2023 024 1:21 PM AIRPORT LOCATION MANAGER Assessment Noted Time PHQ-9 Depression Total Score: 0 04/24/19 20 9:54 AM AIRPORT LOCATION MANAGER documented as of this encounter Care Teams Card Processing Clerk Relationship Specialty Start Date End Date Nia Frederick, PAC [address] [place] [address] PCP - General Physician Content Specialist 01/27/16 Nick Tran DPM Podiatry 11/20/15 Brian Miller MD [address] [phone] Consulting Physician General Surgery 02/19/24 documented as of this encounter
--- OUTSIDE RECORDS SUMMARY | 2024-09-06 12:33 | XMS_ITS | Encounter Summary ---
Author Organization [facility] Address [address] [place] [address] Phone Care Team Providers Care Rehab Physician Name Role Phone Nick Tran DPM Unavailable [phone] Nia Frederick PAC Primary Care Pro vider Brian Miller MD Unavailable Reason for Visit * Reason Comments Medication Refill Encounter Details Date Type Department Care Team (Late st Contact Info) Description 10/23/2021 [facility]ill [facility] - [facility] - [place] [address] [place] [address] Hiram Gloria MD [address] [place] [address] Medication Refill Social History Tobacco Use Types [...] Telephone Encounter - Sravanthi Horton RN - 10/25/2021 10:26 AM CDT Medication failed the protocol, provider to review and approve the medication order if appropriate. Requested Prescriptions Pending Prescriptions Disp Refills baclofen (LIORESAL) 10 MG Tablet [Pharmacy Med Name: BACLOFEN 10 MG TABLET] 45 Tablet 0 Sig: TAKE 1/2 TABLET BY MOUTH 3 TIMES DAILY NEEDED FOR MUSCLE SPASMS FOR UP TO 30 DAYS. Not Delegated - Muscle Relaxants Protocol Failed - 10/23/2021 9:31 AM Failed - This refill cannot be delegated Failed - Not delegated, patient not between 1 and 65 years of age Passed - Visit with relevant provider in past 12 months or upcoming 90 days Recent Visits Date Type Provider Dept 06/25/21 Office Visit Nia Frederick, PAC [facility] [place] 05/28/21 Office Visit Nia Frederick, PAC [facility] [place] 05/21/21 Office Visit Nia Frederick, PAC [facility] [place] 05/13/21 Office Visit Nia Frederick, PAC [facility] [place] 03/24/21 Office Visit Nia Frederick PAC [facility] [place] Showing recent visits within past 365 days and meeting all other requirements Future Appointments Date Type Provider Dept 11/24/21 Appointment Nia Frederick PAC [facility] [place] Showing future appointments within next 90 days and meeting all other requirements documented in this encounter Plan of Treatment Upcoming Encounters Date Type Department Care Team (Late st Contact Info) Description 02/12/2025 10:15 AM COUNTER TOP ASSEMBLER Office Visit [facility] - [facility] - [place] [address] [place] [address] Nia Frederick, PAC [address] [place] [address] documented as of this encounter Visit Diagnoses Not on filedocumented in this encounter Additional Health Concerns Infection Onset Date Last Indicated Resolved Time COVID - 19 05/04/2023 05/04/2023 05/04/2023 1:07 PM COUNTER TOP ASSEMBLER Respiratory Rule-Out 05/04/2023 05/04/2023 024 1:21 PM COUNTER TOP ASSEMBLER Assessment Noted Time PHQ-9 Depression Total Score: 0 09/10/19 21 10:00 AM CDT documented as of this encounter Care Teams Rehab Physician Relationship Specialty Start Date End Date Nia Frederick, PAC [address] [place] [address] PCP - General Physician Showroom Sales Consultant 01/27/16 Nick Tran DPM Podiatry 11/20/15 Brian Miller MD [address] [address] Consulting Physician General Surgery 02/19/24 documented as of this encounter
--- OUTSIDE RECORDS SUMMARY | 2024-09-06 12:33 | XMS_ITS | Clinical Summary ---
Author Organization [facility] Facility Address [address] [place] [id number] Care Team Providers Care Sourcing Specialist Name Role Phone Nia Frederick Primary Care Provider [phone] Social History Tobacco Use Types Packs/Day Years Used Date Smoking Tobacco: Never Assessed Sex and Gender Information Value Date Recorded Sex Assigned at Not on file Legal Sex Male 11:07 AM EDT Gender Identity Not on file Sexual Orientation Not on file Plan of Treatment Health Maintenance Due Date Last Done Comments Influenza Vaccine (#1) 2024 , 12/17/2018, 12/21/2017, Additional history exists Pneumococcal Vaccine: 50+ Years Completed 02/06/2017, 06/09/2015, 12/03/2013 Hepatitis B Vaccine Aged Out No longe r eligible based on patient's age to complete this topic Insurance Medicare Care Teams Sourcing Specialist Relationship Specialty Start Date End Date Nia Frederick PA PCP - General Physician Heel Room Supervisor 05/17/21
--- OUTSIDE RECORDS SUMMARY | 2024-09-06 12:33 | XMS_ITS | Encounter Summary ---
Author Organization [facility] Address [address] [place] [address] Phone Care Team Providers Care Engine Monitor Name Role Phone Nick Tran DPM Unavailable Nia Frederick PAC Primary Care Pro vider Brian Miller MD Unavailable Reason for Visit * Reason Comments Medication Refill Encounter Details Date Type Department Care Team (Late st Contact Info) Description 05/10/2020 Refill [facility] [address] [place], [place] [phone] Nia Frederick, PAC [address] [place] [address] Medication Refill Social History Tobacco Use Types [...] Telephone Encounter - Sravanthi Horton RN - 05/11/2020 12:21 PM CDT Please review and sign. documented in this encounter Plan of Treatment Upcoming Encounters Date Type Department Care Team (Late st Contact Info) Description 02/12/2025 10:15 AM LOG TURNER Office Visit [facility] - Internal Medicine - [place] [address] [place] [address] Nia Frederick, PAC [address] [place] [address] documented as of this encounter Visit Diagnoses Not on filedocumented in this encounter Additional Health Concerns Infection Onset Date Last Indicated Resolved Time COVID - 19 05/21/2021 05/21/2021 05/21/2021 10:3 3 AM CDT COVID - 19 05/21/2021 05/21/2021 06/10/2021 12:1 6 AM CDT COVID - 19 05/04/2023 05/04/2023 05/04/2023 1:07 PM LOG TURNER Respiratory Rule-Out 05/04/2023 05/04/2023 024 1:21 PM LOG TURNER Assessment Noted Time PHQ-9 Depression Total Score: 0 04/24/19 20 9:54 AM LOG TURNER documented as of this encounter Care Teams Engine Monitor Relationship Specialty Start Date End Date Nia Frederick, PAC [address] [place] [address] PCP - General Physician C.O.D. Clerk 01/27/16 Nick Tran DPM Podiatry 11/20/15 Brian Miller MD [address] [phone] Consulting Physician General Surgery 02/19/24 documented as of this encounter
--- NOTE | 2024-09-06 12:40 | ECHO_ITS ---
Patient Info Name: Paulino Correa Age: 84 years : 1940 Gender: Male Ht: 69 in Wt: 186 lbs BSA: 2.04 m2 HR: 72 bpm BP: 132 / 82 mmHg Technical Quality: Fair Exam Date: 09/06/2024 12:49 PM Patient Status: O Admit Date: 09/06/2024 Exam Type: CA echo doppler color flow Complete two-dimensional, color flow and Doppler transthoracic echocardiogram is performed. Software Developer Manager: Amirah Scruggs Attending Provider: William Reddy DO Summary 1. Complete two-dimensional, color flow and Doppler transthoracic echocardiogram is performed. 2. Left ventricular chamber dimension is normal. 3. Left ventricular systolic function is normal, estimated at 60-65. 4. The left ventricular diastolic function is abnormal. 5. E/e' 22 is elevated. 6. Left atrial chamber dimension is mildly enlarged. 7. There is moderate aortic valve sclerosis. 8. There is mild to moderate aortic valve stenosis with a peak velocity of 168 cm/s, mean gradient of 7 mmHg, and aortic valve area of 1.0 cm2. 9. The mitral valve has a mildly calcified annulus. 10. No pulmonary hypertension, estimated pulmonary arterial systolic pressure is 18 mmHg. Left Ventricle E/e' 22 is elevated. Left ventricular chamber dimension is normal. Left ventricular systolic function is normal, estimated at 60-65. The left ventricular diastolic function is abnormal. Right Ventricle Right ventricular chamber dimension is normal. Right ventricular systolic function is normal and with normal TAPSE 2. 4 cm. Left Atria Left atrial chamber dimension is mildly enlarged. Right Atria Right atrial chamber dimension is normal. Aortic Valve The aortic valve is trileaflet. There is moderate aortic valve sclerosis. There is no aortic valve regurgitation. There is mild to moderate aortic valve stenosis with a peak velocity of 168 cm/s, mean gradient of 7 mmHg, and aortic valve area of 1.0 cm2. Pulmonic Valve There is no pulmonic regurgitation. Mitral Valve The mitral valve has a mildly calcified annulus. There is no mitral valve stenosis. There is no mitral valve regurgitation. Tricuspid Valve There is no tricuspid valve regurgitation. No pulmonary hypertension, estimated pulmonary arterial systolic pressure is 18 mmHg. Pericardium/Pleural There is no pericardial effusion. Inferior Vena Cava Normal inferior vena cava with >50% collapse upon inspiration consistent with normal right atrial pressure, 5 mmHg. Aorta The aortic root size at the sinus of Valsalva is normal. Left Ventricular Outflow Tract Name Value Normal LVOT 2D LVOT Diameter 2.0 cm LVOT Doppler LVOT Peak Velocity 57 cm/s LVOT Peak Gradient 1 mmHg LVOT Mean Gradient 1 mmHg LVOT VTI 11 cm LVOT VTI/AV VTI Ratio 0.3 LVOT Stroke Volume 33 ml LVOT CO 2.2 l/min LVOT CI 1.1 l/min/m2 Pulmonic Valve Name Value Normal RVOT Doppler RVOT Peak Velocity 80 cm/s RVOT Peak Gradient 3 mmHg PV Doppler PV Peak Velocity 88 cm/s PV Peak Gradient 3 mmHg Mitral Valve Name Value Normal MV Diastolic Function MV E Peak Velocity 104 cm/s MV A Peak Velocity 1 cm/s MV E/A 74.6 MV Decel Time (PW) 177 ms MV Annular TDI MV E/e' (Septal) 25.0 MV E/e' (Lateral) 21.0 MV E/e' (Average) 23.0 Tricuspid Valve Name Value Normal TV Regurgitation Doppler TR Peak Velocity 178 cm/s TR Peak Gradient 13 mmHg Estimated PAP/RSVP RA Pressure 5 mmHg <=5 PA Systolic Pressure 18 mmHg <36 RV Systolic Pressure 18 mmHg <36 TV Annular TDI TV Lateral Paulina s' Velocity 6.9 cm/s >=9.5 Aortic Valve Name Value Normal AV Doppler AV Peak Velocity 168 cm/s AV Peak Gradient 11 mmHg AV Mean Gradient 7 mmHg AV VTI 33 cm AV Area (Cont Eq VTI) 1.0 cm2 >=3.0 AV Area (Cont Eq Karl) 1.1 cm2 AV DI (Karl) 0.34 AV Regurgitation 2D LVOT Area 3.1 cm2 Ventricles Name Value Normal LV Dimensions 2D/MM IVS Diastolic Thickness (2D) 1.0 cm 0.6-1.0 LVID Diastole (2D) 5.4 cm 4.2-5.8 LVIW Diastolic Thickness (2D) 1.0 cm 0.6-1.0 LVID Systole (2D) 3.2 cm 2.5-4.0 LVOT Diameter 2.0 cm LV Mass (2D Cubed) 205.91 g 88.00-224.00 LV Mass Index (2D Cubed) 101 g/m2 49-115 Relative Wall Thickness (2D) 0.37 <=0.42 LV Fractional Shortening/Ejection Fraction 2D/MM LV Fractional Shortening (2D) 40 % 25-43 LV EF (2D Teichholz) 70 % LV Diastolic Volume (4C MOD) 63 ml LV EF (4C MOD) 69 % LV Diastolic Volume (2C MOD) 59 ml LV EF (2C MOD) 63 % LV Diastolic Volume (BP MOD) 62 ml 62-150 LV Diastolic Volume Index (BP MOD) 30 ml/m2 34-74 LV Systolic Volume (BP MOD) 21 ml 21-61 LV Systolic Volume Index (BP MOD) 10 ml/m2 11-31 LV EF (BP MOD) 66 % 52-72 LV Diastolic Length (4C) 7.6 cm LV Systolic Length (4C) 6.7 cm LV Stroke Volume (4C MOD) 44 ml Atria Name Value Normal LA Dimensions LA Volume (4C A-L) 71 ml LA Volume (BP A-L) 69 ml RA Dimensions RA Area (4C) 13.9 cm2 <=18.0 Report Signatures
== END 2024-09-06 12:29 | disposition home or self-care (01) ==
LOC: ANHCARD 12:30
PROVIDERS: PCP Physician Assistant Medical; Visit Provider Internal Medicine Cardiovascular Disease
DX: I35.0 Nonrheumatic aortic (valve) stenosis (principal)
CPT/HCPCS: 93306